=== PATIENT | female | born 1950 | race African-American/Black ===

== ENCOUNTER 2020-02-13 14:00 | Outpatient (CLI) | payer MEDICARE, SELFPAY ==
[2020-02-13 14:39] LABS: Basophils Percent Auto 0.5 % (0.2-1.2); Eosinophils Absolute Auto 0.1 K/mm3 (0-0.3); Eosinophils Percent Auto 1.3 % (0-4.4); Hematocrit 37.6 % (37.0-47.0); Hemoglobin 11.7 g/dL (12.0-15.0); Lymphocytes Absolute Auto 0.96 K/mm3 (0.9-3.2); Lymphocytes Percent Auto 24.2 % (18.3-44.2); Mean Corpuscular HGB Conc 31.1 g/dl (32-36); Mean Corpuscular Hemoglobin 29.3 pg (26-34); Mean Corpuscular Volume 94.2 fl (80-100); Mean Platelet Volume 10.6 fl (7.4-10.4); Monocytes Absolute Auto 0.5 K/mm3 (0.1-0.6); Monocytes Percent Auto 11.6 % (2.6-8.5); Neutrophils Absolute Auto 2.5 K/mm3 (1.3-6.7); Neutrophils Percent Auto 62.4 % (45.5-73.1); Platelet Count Result 223 k/mm3 (150-375); Red Blood Count 3.99 M/mm3 (4.2-5.4)
[2020-02-13 14:54] LABS: Alanine Aminotransferase 17 U/L (4-35); Albumin Level 4.1 g/dL (3.5-5.1); Alkaline Phosphatase 51 U/L (38-126); Aspartate Amino Transferase 36 U/L (14-36); Bilirubin,Total 0.2 mg/dL (0.2-1.3); Blood Urea Nitrogen 22 mg/dL (7-17); Carbon Dioxide 29 mmol/L (22-30); Chloride 103 mmol/L (98-107); Cholesterol 170 mg/dL (0-200); Estimated Glomerular Filt Rate > 60; Glucose 106 mg/dL (65-105); HDL Direct 62 mg/dL; Sodium 139 mmol/L (137-145); Triglycerides 58 mg/dL (<150)
[2020-02-13 15:05] LABS: LDL Cholesterol Direct 73 mg/dL
== END 2020-02-13 14:01 | disposition home or self-care (01) ==
PROVIDERS: PCP Internal Medicine; Visit Provider Nurse Practitioner
DX: E78.5 Hyperlipidemia, unspecified (principal); I10 Essential (primary) hypertension
CPT/HCPCS: 36415; 80053; 80061; 85025

== ENCOUNTER 2020-02-20 13:53 | Emergency (ER) | payer MEDICARE, SELFPAY ==
--- NOTE | 2020-02-20 13:56 | ED.GENADULT ---
HPI - General Adult General Chief complaint: Dental/Oral Stated complaint: jaw pain Time Seen by Provider: 02/20/20 14:13 Source: patient Mode of arrival: ambulatory Limitations: no limitations History of Present Illness HPI narrative: 69-year-old female patient presents to the [facility] with complaints of left jaw pain for the last 2 to 3 days. Denies any injury to the jaw that she is aware of. Denies any bad teeth. Patient denies any ear pain. Denies any sore throat, runny nose or fevers. Related Data Home Medications Medication Instructions Recorded Confirmed [id number] 600 unit 1,200 unit PO DAILY cap 09/29/19 capsule ascorbate calcium (vitamin C) 500 500 mg PO DAILY 09/29/19 mg tablet atorvastatin 10 mg tablet 10 mg PO DAILY 09/29/19 Allergies Allergy/AdvReac Type Severity Reaction Status Date / Time aspirin Allergy Unknown Headache Verified 10/13/19 12:07 caffeine Allergy Unknown Headache Verified 10/13/19 12:07 penicillin G Allergy Unknown headache Verified 10/13/19 12:07 Penicillins Allergy Unknown headache Verified 10/13/19 12:07 Sulfa (Sulfonamide Allergy Unknown headache Verified 10/13/19 12:07 Antibiotics) sulfanilamide Allergy Unknown Headache Verified 10/13/19 12:07 Review of Systems Review of Systems: Narrative: CONSTITUTIONAL: Denies fever, chills, or sweats. EYES: Denies visual changes, redness, or discharge. ENT: Denies rhinorrhea, congestion, sore throat, or otalgia. Positive left jaw pain x2 to 3 days CARDIOVASCULAR: Denies chest pain, palpitations, or edema. RESPIRATORY: Denies cough or dyspnea. GASTROINTESTINAL: Denies abdominal pain, nausea, vomiting, or diarrhea. GENITOURINARY: Denies dysuria or hematuria. SKIN: Denies rash or itching. MUSCULOSKELETAL: Denies back pain, joint pain, or myalgia. NEUROLOGIC: Denies headache, numbness, or weakness. PSYCHIATRIC: Denies anxiety or depression. [facility] Past Medical History Medical History Anal cancer Hypercholesterolemia Hyperparathyroidism Kidney stones Surgical History Surgical History H/O section x 2 H/O knee surgery bilateral H/O lithotripsy History of dilation and curettage Family History Family History Mother Family history of osteoporosis Family history of migraine headaches Family history of arthritis Family history of hearing loss Family history of congestive heart failure Patient's mother is , Onset Age: 99 Father Malignant neoplasm of prostate Patient's father is Grandparent Family history of malignant neoplasm of breast Social History Social History Smoking status: Never smoker Second hand tobacco smoke exposure: No Alcohol intake: current Gender identity (if verbalized by the patient): Female Comments At the time of my signature I agree with nursing past medical history, surgical, social, and family history. There is no relevant family history pertinent to the presenting complaint. Exam Narrative: Exam Narrative: GENERAL: Well-appearing, well-nourished, and in no acute distress. HEAD: Normocephalic, atraumatic. EYES: PERRLA and EOMI. ENT: Nares clear, no rhinorrhea or epistaxis. Mucous membranes moist. Patient has pain when opening the mouth. No obvious swelling noted. Pain does radiate up to the head causing a headache. Bilateral TMs are clear with no erythema or foreign bodies to the canal. Posterior pharynx with no erythema, tonsil larger, exudates or lesions present. NECK: Supple. No lymphadenopathy CHEST: Clear to auscultation. No respiratory distress. HEART: Regular rate and rhythm. No murmur heard. Normal peripheral pulses. ABDOMEN: Soft, nontender, nondistended, normal active bowel sounds. EXTREMITIES: No
[2020-02-20 14:10] VITALS: BP 131/47; PULSE 81; RESP 20; TEMP 36.1; O2SAT 99
== END 2020-02-20 14:19 | disposition home or self-care (01) ==
PROVIDERS: Emergency Provider Nurse Practitioner Family; PCP Internal Medicine
DX: M26.69 Other specified disorders of temporomandibular joint (principal); E78.00 Pure hypercholesterolemia, unspecified; E21.3 Hyperparathyroidism, unspecified; Z85.048 Personal history of other malignant neoplasm of rectum, rectosigmoid junction, and anus
CPT/HCPCS: 99211; G0463

== ENCOUNTER 2020-05-24 14:45 | Outpatient (CLI) | payer MEDICARE, SELFPAY ==
--- NOTE | ~2020-05-24 | MM_ITS ---
EXAMINATION: MM screening dulce maria BI w alayna HISTORY: Screening TECHNIQUE: Craniocaudal and mediolateral oblique 3-D tomosynthesis images were obtained and synthetic 2-D images were generated. CAD analysis was submitted and interpreted. COMPARISON: Comparison to multiple prior studies sequentially, with oldest reviewed study dated 06/12. BREAST PARENCHYMAL COMPOSITION: There are scattered areas of fibroglandular density. FINDINGS: There is no evidence of suspicious mass, calcification, or architectural distortion to sugg est malignancy in either breast. There has been no suspicious interval change. IMPRESSION: 1. No mammographic evidence of malignancy. 2. Recommend routine screening mammography in one year. BI-RADS Category 1: Negative Reviewed, dictated and finalized at location A.
--- NOTE | ~2020-05-24 | DEXA_ITS ---
Bone Density Report Name: Elieco Galvan Age: 69 Sex: Female Ethnicity: Date of : 1950 Indication: postmenopausal osteoporosis; parental hip fracture; cancer; Referring Provider: GATO CROOKS Study: Bone densitometry was performed. Exam Date: May 24, 2020 Accession number: [id number] Bone Density: Region BMD T-score Z-score Classification AP Spine (L1-L4) 0.818 -2.1 0.0 Osteopenia Femoral Neck (Left) 0.679 -1.5 0.2 Osteopenia Total Hip (Left) 0.782 -1.3 0.2 Osteopenia Total Hip Bilateral Avg 0.772 -1.4 0.1 Osteopenia Femoral Neck (Right) 0.620 -2.1 -0.3 Osteopenia Total Hip (Right) 0.760 -1.5 0.0 Osteopenia World Health Organization criteria for BMD impression classify patients as: Normal (T-score at or above -1.0), Osteopenia (T-score between -1.0 and -2.5), or Osteoporosis (T-score at or below -2.5). 10-year Fracture Risk(1): Major Osteoporotic Fracture 9.9% Hip Fracture 2.5% Reported Risk Factors: [place] (), Neck BMD=0.620, BMI=21.1, parental fracture (1) FRAX(R) Version 3.08. Fracture probability calculated for an untreated patient. Fracture probability may be lower if the patient has received treatment. Previous Exams: Region Exam Age BMD T-score BMD Change BMD Change Date g/cm2 vs Baseline vs Previous AP Spine(L1-L4) 05/24/2020 69 0.818 -2.1 -0.157(-16.1%) 0.055(7.2%)* 11/03/2016 66 0.763 -2.6 -0.212(-21.8%) -0.038(-4.8%)# 12/30/2011 61 0.801 -2.2 -0.174(-17.8%) -0.174(-17.8%) 02/02/2003 52 0.975 -0.7 Total Hip(Left) 05/24/2020 69 0.782 -1.3 -0.118(-13.2%) 0.017(2.3%) 11/03/2016 66 0.764 -1.5 -0.136(-15.1%) 0.016(2.1%)# 12/30/2011 61 0.749 -1.6 -0.152(-16.9%) -0.152(-16.9%) 02/02/2003 52 0.900 -0.3 Total Hip(Right) 05/24/2020 69 0.760 -1.5 -0.147(-16.2%) 0.002(0.3%) 11/03/2016 66 0.758 -1.5 -0.148(-16.4%) -0.044(-5.5%)# 12/30/2011 61 0.802 -1.1 -0.104(-11.5%) -0.104(-11.5%) 02/02/2003 52 0.907 -0.3 *Denotes significance at 95% confidence level, LSC for AP Spine = 0.022 g/cm2, LSC for Total Hip = 0.027 g/cm2 Clinical Information Provided by Patient: Parent has had a hip fracture Has used the following medications: Vitamin D Has the following medical conditions: Cancer Patient maximum height was 63 Menopause Age: 52 No regular weight bearing exercise Onset of menses at age 13 Number of children 2 Impression:
== END 2020-05-24 14:46 | disposition home or self-care (01) ==
LOC: ANHIMG 14:50
PROVIDERS: PCP Internal Medicine; Visit Provider Obstetrics & Gynecology
DX: Z12.31 Encounter for screening mammogram for malignant neoplasm of breast (principal); Z78.0 Asymptomatic menopausal state; M85.88 Other specified disorders of bone density and structure, other site; M85.852 Other specified disorders of bone density and structure, left thigh; M85.851 Other specified disorders of bone density and structure, right thigh
CPT/HCPCS: 77063; 77067; 77080

== ENCOUNTER 2020-05-24 15:58 | Outpatient (CLI) | payer MEDICARE, SELFPAY ==
[2020-05-24 16:14] LABS: Basophils Percent Auto 0.6 % (0.2-1.2); Eosinophils Absolute Auto 0.1 K/mm3 (0-0.3); Eosinophils Percent Auto 2.6 % (0-4.4); Hematocrit 40.7 % (37.0-47.0); Hemoglobin 12.6 g/dL (12.0-15.0); Immature Granulocyte Absolute 0.01 K/mm3 (0.00-0.031); Immature Granulocyte Percent A 0.2 % (0-0.5); Lymphocytes Percent Auto 25.6 % (18.3-44.2); Mean Corpuscular Volume 93.6 fl (80-100); Mean Platelet Volume 10.3 fl (7.4-10.4); Monocytes Absolute Auto 0.5 K/mm3 (0.1-0.6); Monocytes Percent Auto 9.6 % (2.6-8.5); Neutrophils Absolute Auto 2.9 K/mm3 (1.3-6.7); Neutrophils Percent Auto 61.4 % (45.5-73.1); Platelet Count Result 220 k/mm3 (150-375); Red Blood Count 4.35 M/mm3 (4.2-5.4); Red Cell Distribution Width 12.7 % (11.5-14.5); White Blood Count 4.7 K/mm3 (4.5-10.0)
[2020-05-24 17:38] LABS: Folic Acid 8.3 ng/mL (2.76->20)
== END 2020-05-24 15:59 | disposition home or self-care (01) ==
LOC: ANHLAB 16:01
PROVIDERS: PCP Internal Medicine; Visit Provider Nurse Practitioner
DX: D61.818 Other pancytopenia (principal)
CPT/HCPCS: 36415; 77063; 77067; 77080; 82607; 82746; 85025

== ENCOUNTER 2020-10-24 10:59 | Outpatient (CLI) | payer MEDICARE, SELFPAY ==
[2020-10-24 12:42] LABS: Vitamin D 25 Hydroxy 64.1 ng/mL
== END 2020-10-24 11:00 | disposition home or self-care (01) ==
PROVIDERS: PCP Internal Medicine; Visit Provider Obstetrics & Gynecology
DX: M85.80 Other specified disorders of bone density and structure, unspecified site (principal)
CPT/HCPCS: 36415; 82306

== ENCOUNTER 2021-02-13 13:45 | Emergency (ER) | payer MEDICARE, SELFPAY ==
[2021-02-13 13:56] VITALS: BP 133/54; PULSE 60; RESP 20; TEMP 36.3; O2SAT 100
--- NOTE | 2021-02-13 13:58 | ED.EXTPRO ---
HPI - Extremity Problem General Chief complaint: Extremity Injury, Upper Stated complaint: index finger Time Seen by Provider: 02/13/21 14:00 Source: patient and RN notes reviewed Mode of arrival: ambulatory Limitations: no limitations History of Present Illness HPI Narrative: 70-year-old female presents with concern injury to the second digit of her right hand. Reports she smashed the finger 3 weeks ago and caused injury to the fingernail. Reports the nail broke, and continues to get snagged and cause pain. She denies pain at rest. She denies musculoskeletal pain, bruising, swelling. Reports the nail is partially attached partially and partially detached. She denies any pockets of pus, redness Complaint: extremity pain Related Data Home Medications Medication Instructions Recorded Confirmed ascorbate calcium (vitamin C) 500 500 mg PO DAILY 09/29/19 10/22/20 mg tablet Allergies Allergy/AdvReac Type Severity Reaction Status Date / Time aspirin Allergy Mild Headache Verified 02/13/21 14:06 penicillin G Allergy Mild headache Verified 02/13/21 14:06 Penicillins Allergy Mild headache Verified 02/13/21 14:06 Sulfa (Sulfonamide Allergy Mild headache Verified 02/13/21 14:06 Antibiotics) sulfanilamide Allergy Mild Headache Verified 02/13/21 14:06 Review of Systems Review of Systems: Narrative: CONSTITUTIONAL: Denies malaise, chills, sweats, or fever. SKIN: Reports injury to the fingernail of the second digit right hand MUSCULOSKELETAL: Denies musculoskeletal pain, bruising, swelling NEUROLOGIC: Denies numbness, weakness All systems reviewed & are unremarkable except as noted in HPI and below PMFSH Past Medical History Medical History Anal cancer Hypercholesterolemia Hyperparathyroidism Hypertension Kidney stones Surgical History Surgical History H/O section x 2 H/O knee surgery bilateral H/O lithotripsy History of dilation and curettage Family History Family History Mother Family history of osteoporosis Family history of migraine headaches Family history of arthritis Family history of hearing loss Family history of congestive heart failure Patient's mother is , Onset Age: 99 Father Malignant neoplasm of prostate Patient's father is Grandparent Family history of malignant neoplasm of breast Social History Social History Smoking status: Never smoker Second hand tobacco smoke exposure: No Alcohol intake: current Alcohol use details: occasionally Gender identity (if verbalized by the patient): Female Comments At time of signature, agree with nursing past medical, surgical, social and family history. There is no relevant family history pertinent to the presenting complaint Exam Narrative: Exam Narrative: GENERAL: Well-appearing, well-nourished, and in no acute distress. HEAD: Normocephalic EYES: PERRLA, conjunctivae clear NECK: Supple. CHEST: Speaks in full sentences. No respiratory distress. HEART: Regular rate and rhythm. Normal and equal peripheral pulses. EXTREMITIES: Second digit of right hand has normal strength and sensation. 5/5 strength with digit flexion, extension. Range of motion normal. No clubbing, cyanosis, or edema noted. No tenderness. Skin intact. Normal digital cascade with flexion of fingers, median, ulnar and radial nerve intact. Normal sensation of each side of finger. Can perform 'okay' sign, 'cross over finger test of index and middle fingers' and 'thumbs up' sign. No scissoring. Normal thumb opposition. Good capillary refill and radial pulse. Distal capillary refill less than 3 seconds. SKIN: Warn, dry, intact, pink. No rash. Fingernail on the second digit of the right hand partially detached, g
== END 2021-02-13 14:27 | disposition home or self-care (01) ==
PROVIDERS: Emergency Provider Nurse Practitioner; PCP Internal Medicine
DX: S69.91XA Unspecified injury of right wrist, hand and finger(s), initial encounter (principal); X58.XXXA Exposure to other specified factors, initial encounter; E78.00 Pure hypercholesterolemia, unspecified; I10 Essential (primary) hypertension; Z85.048 Personal history of other malignant neoplasm of rectum, rectosigmoid junction, and anus
CPT/HCPCS: 99212; G0463

== ENCOUNTER 2021-03-26 11:19 | Emergency (ER) | payer MEDICARE, SELFPAY ==
[2021-03-26 11:34] VITALS: BP 113/56; PULSE 80; RESP 16; TEMP 36.9; O2SAT 100
[2021-03-26 11:36] VITALS: BP 113/56; PULSE 80; RESP 16; TEMP 36.9; O2SAT 100
--- NOTE | 2021-03-26 12:03 | ED.GENADULT ---
HPI - General Adult General Chief complaint: Urogenital-Female Stated complaint: uti Time Seen by Provider: 03/26/21 11:23 Source: patient Mode of arrival: ambulatory Limitations: no limitations History of Present Illness HPI narrative: Patient is a 70-year-old -[place] female presents to the [facility] via pov for evaluation of nausea that began Thursday after starting Macrobid. Additionally, she reports having a colonoscopy on March 21 and urinary symptoms such as urinary frequency, urgency, chills, and fever rich began on March 23. She contacted her son who is a MD who prescribed her 5 days of Macrobid. She reports the Macrobid has improved urinary symptoms although continues to cause nausea stating, it just makes me stick in my stomach .. She states her fever resolved Thursday. History of UTIs. UTI symptoms are similar to previous UTIs. Last UTI was approximately 1 year ago. She is also requesting urine culture to check for Macrobid resistance as encouraged by her son. Related Data Home Medications Medication Instructions Recorded Confirmed ascorbate calcium (vitamin C) 500 500 mg PO DAILY 09/29/19 03/26/21 mg tablet Allergies Allergy/AdvReac Type Severity Reaction Status Date / Time aspirin Allergy Mild Headache Verified 03/26/21 12:03 penicillin G Allergy Mild headache Verified 03/26/21 12:03 Penicillins Allergy Mild headache Verified 03/26/21 12:03 Sulfa (Sulfonamide Allergy Mild headache Verified 03/26/21 12:03 Antibiotics) sulfanilamide Allergy Mild Headache Verified 03/26/21 12:03 Review of Systems Review of Systems: Denies history of kidney disease pyelonephritis, and renal calculi. Denies sweats, change in appetite, poor p.o. intake, malaise, recent weight loss, myalgias, lymphadenopathy, headache, dizziness, abdominal pain, constipation, vomiting, diarrhea, abdominal cramping, dysuria, hematuria, back pain, urinary incontinence, vaginal bleeding/discharge, shortness of breath, chest pain, and heart palpitations/murmurs. [facility] Past Medical History Medical History Anal cancer Hypercholesterolemia Hyperparathyroidism Hypertension Kidney stones Surgical History Surgical History H/O section x 2 H/O knee surgery bilateral H/O lithotripsy History of dilation and curettage Family History Family History Mother Family history of osteoporosis Family history of migraine headaches Family history of arthritis Family history of hearing loss Family history of congestive heart failure Patient's mother is , Onset Age: 99 Father Malignant neoplasm of prostate Patient's father is Grandparent Family history of malignant neoplasm of breast Social History Social History Smoking status: Never smoker Second hand tobacco smoke exposure: No Alcohol intake: current Alcohol use details: occasionally Gender identity (if verbalized by the patient): Female Comments I have reviewed and agree with the patient's past medical, surgical, social, and family hx as documented by the RN. There is no relevant family history pertinent to the presenting complaint. Exam Narrative: GENERAL: Well-appearing, well-nourished, and in no acute distress. HEAD: Normocephalic, atraumatic. NECK: Supple. No lymphadenopathy or nuchal rigidity. CHEST: Lung sounds are clear to auscultation in bilateral lung thompson. No respiratory distress. HEART: Regular rate and rhythm. No murmur, gallop, or rub heard. ABDOMEN: Soft, non-tender, non-distended, normal active bowel sounds in all quadrants. No guarding. No rebound tenderness. No pulsatile or palpable abdominal mass(es). No CVATGU: Bladder non-distended, non-tender EXTR
== END 2021-03-26 12:20 | disposition home or self-care (01) ==
PROVIDERS: Emergency Provider Nurse Practitioner Family; PCP Nurse Practitioner
DX: N30.01 Acute cystitis with hematuria (principal); E78.00 Pure hypercholesterolemia, unspecified; I10 Essential (primary) hypertension; E21.3 Hyperparathyroidism, unspecified; Z85.048 Personal history of other malignant neoplasm of rectum, rectosigmoid junction, and anus
CPT/HCPCS: 81003; 87086; 87088; 99213; G0463

== ENCOUNTER 2021-03-29 10:30 | Emergency (ER) | payer MEDICARE, SELFPAY ==
--- NOTE | ~2021-03-29 | CT_ITS ---
EXAMINATION: CT abdomen pelvis wo con DATE: 03/29/2021 12:24 INDICATION: Left flank pain. TECHNIQUE: Computed tomography (CT) of the abdomen and pelvis was performed without intravenous contr ast. Automated exposure control and iterative reconstruction technique were employed. The dose-length product was 183.91 mGy-cm. COMPARISON: CT abdomen and pelvis 04/18/2016 FINDINGS: The visualized portions of the lung bases demonstrate mild atelectasis. No pleural effusion . Cardiomegaly is noted. No pericardial effusion. There is a 15 mm mass in inferior left breast, stab le from 04/19/2016, likely benign. The liver, gallbladder, spleen, pancreas, adrenal glands are normal . There are three 1-2 mm stones in right kidney. There are 3 stones in left kidney measuring up to 4 mm. There is severe left hydronephrosis and hydroureter. Two calcifications in the area of distal lef t ureter were present on the prior CT, likely phleboliths. There are no dilated loops of bowel. The a ppendix is normal. There is diverticulosis of the colon without evidence of diverticulitis. There are no pathologically enlarged lymph nodes. There is no free intraperitoneal fluid. There is mild lumbar spondylosis. IMPRESSION: 1. Severe left hydronephrosis and hydroureter. Stricture from pelvic radiation is a possible etiology . 2. Bilateral nonobstructing kidney stones. Reviewed, dictated and finalized at location B. IMPRESSION: 1. Severe left hydronephrosis and hydroureter. Stricture from pelvic radiation is a possible etiology. 2. Bilateral nonobstructing kidney stones.
[2021-03-29 11:22] VITALS: BP 126/56; PULSE 76; RESP 18; TEMP 36.4; O2SAT 100
[2021-03-29 11:32] LABS: Basophils Percent Auto 0.4 % (0.2-1.2); Eosinophils Percent Auto 0.4 % (0-4.4); Hematocrit 35.1 % (37.0-47.0); Hemoglobin 10.8 g/dL (12.0-15.0); Immature Granulocyte Absolute 0.05 K/mm3 (0.00-0.031); Immature Granulocyte Percent A 0.6 % (0-0.5); Lymphocytes Absolute Auto 0.71 K/mm3 (0.9-3.2); Lymphocytes Percent Auto 8.9 % (18.3-44.2); Mean Corpuscular HGB Conc 30.8 g/dl (32-36); Mean Corpuscular Hemoglobin 28.6 pg (26-34); Mean Corpuscular Volume 92.9 fl (80-100); Monocytes Absolute Auto 0.7 K/mm3 (0.1-0.6); Monocytes Percent Auto 8.3 % (2.6-8.5); Neutrophils Absolute Auto 6.5 K/mm3 (1.3-6.7); Neutrophils Percent Auto 81.4 % (45.5-73.1); Platelet Count Result 275 k/mm3 (150-375); Red Blood Count 3.78 M/mm3 (4.2-5.4); Red Cell Distribution Width 12.6 % (11.5-14.5)
[2021-03-29 11:46] LABS: Anion Gap 8 mmol/L (8-16); Blood Urea Nitrogen 16 mg/dL (7-17); Calcium 9.2 mg/dL (8.4-10.2); Carbon Dioxide 30 mmol/L (22-30); Chloride 102 mmol/L (98-107); Estimated CRCL calculation 45 ml/min; Estimated Glomerular Filt Rate > 60; Glucose 115 mg/dL (65-110); Potassium 3.6 mmol/L (3.4-5.0); Sodium 140 mmol/L (137-145)
--- NOTE | 2021-03-29 12:04 | ED.BACK ---
HPI - Back Pain/Injury General Chief Complaint: Back Pain/Injury Stated Complaint: flank pain Time Seen by Provider: 03/29/21 12:02 Source: patient Mode of arrival: ambulatory Limitations: no limitations History of Present Illness HPI Narrative: Patient is a 70-year-old female who presents for evaluation of left flank pain in the setting of a urinary tract infection. Patient was initially started on Macrobid by her son who is a physician last week. She had mild improvement in her symptoms without antibiotic. However, patient was seen at her primary care physician's office this morning for dysuria and was diagnosed with recurrent urinary tract infection. Given patient's history of nephrolithiasis, she was urged to come to the emergency department for evaluation. Patient reports dull, aching left kidney stone with subjective fever and chills. Patient was afebrile at the time of arrival to our facility. No palpitations or shortness of breath. No vaginal discharge or bleeding. No vomiting. Related Data Home Medications Medication Instructions Recorded Confirmed ascorbate calcium (vitamin C) 500 500 mg PO DAILY 09/29/19 03/29/21 mg tablet Allergies Allergy/AdvReac Type Severity Reaction Status Date / Time aspirin Allergy Mild Headache Verified 03/29/21 12:03 penicillin G Allergy Mild headache Verified 03/29/21 12:03 Penicillins Allergy Mild headache Verified 03/29/21 12:03 Sulfa (Sulfonamide Allergy Mild headache Verified 03/29/21 12:03 Antibiotics) sulfanilamide Allergy Mild Headache Verified 03/29/21 12:03 Review of Systems Review of Systems: CONSTITUTIONAL: Reports fever and chills EYES: Denies visual changes, redness, or discharge. ENT: Denies rhinorrhea, congestion, sore throat, or otalgia. CARDIOVASCULAR: Denies chest pain, palpitations, or edema. RESPIRATORY: Denies cough or dyspnea. GASTROINTESTINAL: Denies abdominal pain, reports mild nausea GENITOURINARY: Reports dysuria, hematuria and flank pain SKIN: Denies rash or itching. MUSCULOSKELETAL: Denies back pain, joint pain, or myalgia. NEUROLOGIC: Denies headache, numbness, or w PMFSH Past Medical History Medical History Anal cancer Hypercholesterolemia Hyperparathyroidism Hypertension Kidney stones Vulvar adhesions Surgical History Surgical History H/O section x 2 H/O knee surgery bilateral H/O lithotripsy History of dilation and curettage Family History Family History Mother Family history of osteoporosis Family history of migraine headaches Family history of arthritis Family history of hearing loss Family history of congestive heart failure Patient's mother is , Onset Age: 99 Father Malignant neoplasm of prostate Patient's father is Grandparent Family history of malignant neoplasm of breast Social History Social History Smoking status: Never smoker Second hand tobacco smoke exposure: No Alcohol intake: current Alcohol use details: occasionally Gender identity (if verbalized by the patient): Female Exam Narrative: GENERAL: Awake, alert, conversant HEAD: Normocephalic, atraumatic. EYES: PERRLA and EOMI. ENT: Nares clear, no rhinorrhea or epistaxis. Mucous membranes moist. NECK: Supple. CHEST: No respiratory distress, breathing even and non labored HEART: Regular rate, sinus rhythm ABDOMEN:Non distended, non tender, mild left flank tenderness EXTREMITIES: Normal range of motion. No edema. SKIN: Warm, dry, no rash. NEURO:No focal deficits. Alert and oriented x3 Course Vital Signs Vital signs: Vital Signs Temperature 36.4 C L 03/29/21 11:22 Pulse Rate 76 03/29/21 11:22 Respiratory Rate 18 03/29/21 11:22 Blood Pressure 126/56 L 03/29
[2021-03-29 12:09] VITALS: BP 113/50; PULSE 66; RESP 20; O2SAT 99
[2021-03-29 12:09] LABS: Add Urine Microscopic? YES; Appearance Urine Turbid (Clear); Bilirubin Urine Negative (Negative); Blood Urine 2+ (Negative); Color Urine Yellow (Yellow); Glucose Urine UA Negative (Negative); Ketones Urine Negative (Negative); Leukocyte Esterase Ur 3+ LEU/UL (Negative); Nitrate Urine Negative (Negative); Protein Urine 3+ mg/dL (Negative); Specific Grav Ur 1.014 (1.001-1.035); Urobilinogen Urine Negative mg/dL (<2.0); WBC Urine >75 /hpf
[2021-03-29 12:41] VITALS: BP 120/53; PULSE 77; RESP 20; O2SAT 99
[2021-03-29] MEDS: SODIUM CHLORIDE 0.9% IV 1,000 ML 999 ML IV CONT (12:49)
[2021-03-29 13:30] VITALS: BP 119/59; PULSE 68; RESP 20; O2SAT 95
[2021-03-29 14:55] VITALS: BP 120/80; PULSE 60; RESP 20; O2SAT 96
== END 2021-03-29 14:57 | disposition home or self-care (01) ==
PROVIDERS: Emergency Medicine; Emergency Provider Emergency Medicine; PCP Nurse Practitioner
DX: N10 Acute pyelonephritis (principal); E78.00 Pure hypercholesterolemia, unspecified; E21.3 Hyperparathyroidism, unspecified; I10 Essential (primary) hypertension; Z87.442 Personal history of urinary calculi; Z88.0 Allergy status to penicillin; Z88.2 Allergy status to sulfonamides; Z85.048 Personal history of other malignant neoplasm of rectum, rectosigmoid junction, and anus
CPT/HCPCS: 36415; 74176; 80048; 81001; 85025; 87086; 96365; 96367; 99284; J0131; J0696; J7030

== ENCOUNTER 2021-04-24 12:25 | Outpatient (CLI) | payer MEDICARE, SELFPAY ==
--- NOTE | ~2021-04-24 | US_ITS ---
US retroperitoneal comp 04/24/2021 12:57 Procedure: Realtime transabdominal ultrasound of the kidneys and bladder. Indication: Renal infection Comparison: Ultrasound dated 01/07/[address] dated 03/29/2021 Findings: There is moderate left hydronephrosis. Right renal echotexture is normal without stones, ma ss or hydronephrosis. The right kidney measures 8.9 cm and left kidney measures 8.4 cm. Bladder with in normal limits. Impression: 1: Moderate left hydronephrosis. Reviewed, dictated and finalized at location A. Impression: 1: Moderate left hydronephrosis.
[2021-04-24 16:04] LABS: Hematocrit 34.8 % (37.0-47.0); Hemoglobin 10.5 g/dL (12.0-15.0); Mean Corpuscular HGB Conc 30.2 g/dl (32-36); Mean Corpuscular Hemoglobin 27.9 pg (26-34); Mean Corpuscular Volume 92.6 fl (80-100); Mean Platelet Volume 10.8 fl (7.4-10.4); Platelet Count Result 211 k/mm3 (150-375); Red Blood Count 3.76 M/mm3 (4.2-5.4); Red Cell Distribution Width 13.6 % (11.5-14.5)
== END 2021-04-24 12:26 | disposition home or self-care (01) ==
PROVIDERS: PCP Internal Medicine; Visit Provider Nurse Practitioner
DX: N15.9 Renal tubulo-interstitial disease, unspecified (principal)
CPT/HCPCS: 36415; 76770; 85027

== ENCOUNTER → 2021-06-29 00:28 | Outpatient (CLI) | payer MEDICARE, SELFPAY ==
[2021-06-29 18:14] LABS: SARS-CoV-2 RNA PCR Positive
== END ==
PROVIDERS: PCP Internal Medicine; Visit Provider Clinical Nurse Specialist
DX: U07.1 COVID-19 (principal)
CPT/HCPCS: C9803; U0003; U0005

== ENCOUNTER 2021-08-22 14:04 | Outpatient (CLI) | payer MEDICARE, SELFPAY ==
[2021-08-22 15:20] LABS: Basophils Percent Auto 0.5 % (0.2-1.2); Eosinophils Absolute Auto 0.1 K/mm3 (0-0.3); Eosinophils Percent Auto 1.4 % (0-4.4); Hematocrit 37.6 % (37.0-47.0); Hemoglobin 12.1 g/dL (12.0-15.0); Immature Granulocyte Absolute 0.01 K/mm3 (0.00-0.031); Immature Granulocyte Percent A 0.2 % (0-0.5); Lymphocytes Percent Auto 23.4 % (18.3-44.2); Mean Corpuscular HGB Conc 32.2 g/dl (32-36); Mean Corpuscular Hemoglobin 29.2 pg (26-34); Mean Corpuscular Volume 90.8 fl (80-100); Mean Platelet Volume 10.3 fl (7.4-10.4); Monocytes Absolute Auto 0.6 K/mm3 (0.1-0.6); Neutrophils Absolute Auto 2.6 K/mm3 (1.3-6.7); Neutrophils Percent Auto 60.5 % (45.5-73.1); Platelet Count Result 245 k/mm3 (150-375); Red Blood Count 4.14 M/mm3 (4.2-5.4); Red Cell Distribution Width 13.5 % (11.5-14.5); White Blood Count 4.3 K/mm3 (4.5-10.0)
[2021-08-22 15:30] LABS: Alanine Aminotransferase 22 U/L (4-35); Albumin Level 4.5 g/dL (3.5-5.1); Alkaline Phosphatase 58 U/L (38-126); Anion Gap 9 mmol/L (8-16); Aspartate Amino Transferase 37 U/L (14-36); Bilirubin,Total 0.4 mg/dL (0.2-1.3); Blood Urea Nitrogen 27 mg/dL (7-17); Calcium 9.6 mg/dL (8.4-10.2); Carbon Dioxide 28 mmol/L (22-30); Chloride 100 mmol/L (98-107); Cholesterol 199 mg/dL (0-200); Estimated Glomerular Filt Rate > 60; Glucose 103 mg/dL (65-110); HDL Direct 80 mg/dL; Potassium 4.1 mmol/L (3.4-5.0); Sodium 137 mmol/L (137-145); Triglycerides 49 mg/dL (<150)
[2021-08-22 15:41] LABS: LDL Cholesterol Direct 86 mg/dL
[2021-08-22 16:19] LABS: Vitamin D 25 Hydroxy 64.6 ng/mL
[2021-08-22 16:59] LABS: Hepatitis B Surface Anti Res Positive
[2021-08-28 16:00] LABS: Mumps Virus IgG Antibody >300.00 AU/mL
[2021-08-28 20:12] LABS: Rubeola Measles IgG >300.00 AU/mL
== END 2021-08-22 14:05 | disposition home or self-care (01) ==
PROVIDERS: PCP Internal Medicine; Visit Provider Nurse Practitioner
DX: Z11.59 Encounter for screening for other viral diseases (principal); Z71.85 Encounter for immunization safety counseling; E55.9 Vitamin D deficiency, unspecified; E78.00 Pure hypercholesterolemia, unspecified; I10 Essential (primary) hypertension; E21.3 Hyperparathyroidism, unspecified
CPT/HCPCS: 36415; 80053; 80061; 82306; 85025; 86706; 86735; 86765; 86787

== ENCOUNTER 2021-10-07 14:11 | Outpatient (CLI) | payer MEDICARE, SELFPAY ==
--- NOTE | ~2021-10-07 | XR_ITS ---
XR hip RT min 2V DATE: 10/07/2021 14:04 INDICATION: Right hip pain TECHNIQUE: AP and lateral views COMPARISON: None FINDINGS: No fracture or dislocation, avascular necrosis or bone destruction. There is chondrocalcino sis of the right hip joint. The pubic symphysis and right sacroiliac joints are intact. IMPRESSION: Right hip chondrocalcinosis Reviewed, dictated and finalized at location A. FORM MILL SUPERVISOR IMPRESSION: Right hip chondrocalcinosis
--- NOTE | ~2021-10-07 | XR_ITS ---
EXAMINATION: XR chest 2V 10/07/2021 14:04 INDICATION: Screening for tuberculosis. PROCEDURE: 2 view chest COMPARISON: 08/15/2009 FINDINGS: The lungs are clear. The cardiomediastinal silhouette is within normal limits. There are no pleural effusions. There is no pneumothorax suspected. IMPRESSION: 1: NO ACUTE CARDIOPULMONARY DISEASE. Reviewed, dictated and finalized at location A. PMENT STERILIZER
[2021-10-15 19:21] LABS: Parathyroid Hormone Related Pr 10 pg/mL (11-20)
== END 2021-10-07 14:12 | disposition home or self-care (01) ==
PROVIDERS: PCP Internal Medicine; Visit Provider Clinical Nurse Specialist
DX: M25.551 Pain in right hip (principal); Z11.1 Encounter for screening for respiratory tuberculosis; E21.3 Hyperparathyroidism, unspecified
CPT/HCPCS: 36415; 71046; 73502; 83519

== ENCOUNTER 2021-11-19 10:23 | Outpatient (CLI) | payer MEDICARE, SELFPAY ==
--- NOTE | ~2021-11-19 | MM_ITS ---
EXAMINATION: MM screening dulce maria BI w alayna HISTORY: Screening mammogram TECHNIQUE: Craniocaudal and mediolateral oblique 3-D tomosynthesis images were obtained and synthetic 2-D images were generated. CAD analysis was submitted and interpreted. COMPARISON: 05/24/2020, 08/05/2018, 07/22/2017 bilateral screening mammogram examinations BREAST PARENCHYMAL COMPOSITION: There are scattered areas of fibroglandular density. FINDINGS: There is no evidence of suspicious mass, calcification, or architectural distortion to sugg est malignancy in either breast. There has been no suspicious interval change. IMPRESSION: 1. No mammographic evidence of malignancy. 2. Recommend routine screening mammography in one year. BI-RADS Category 1: Negative Reviewed, dictated and finalized at location A.
== END 2021-11-19 10:24 | disposition home or self-care (01) ==
LOC: ANHIMG 10:25
PROVIDERS: PCP Internal Medicine; Visit Provider Obstetrics & Gynecology
DX: Z12.31 Encounter for screening mammogram for malignant neoplasm of breast (principal)
CPT/HCPCS: 77063; 77067

== ENCOUNTER 2022-07-01 10:28 | Outpatient (CLI) | payer MEDICARE, SELFPAY ==
--- NOTE | ~2022-07-01 | CT_ITS ---
EXAMINATION: CT abdomen pelvis w con DATE: 07/01/2022 11:10 INDICATION: Anal cancer. TECHNIQUE: Computed tomography (CT) of the abdomen and pelvis was performed with 100 mL Omnipaque 350 intravenous contrast. Automated exposure control and iterative reconstruction technique were employe d. The dose-length product was 183.57 mGy-cm. COMPARISON: CT abdomen and pelvis 03/29/2021 FINDINGS: The visualized portions of the lung bases demonstrate mild atelectasis. No pleural effusion . The heart size is normal. No pericardial effusion. There are cysts in the liver measuring up to 4 m m. The gallbladder, spleen, pancreas, adrenal glands, and right kidney are normal. There is mild atro phy of left kidney. There are 3 stones in left kidney measuring up to 3 mm. There is mild left hydron ephrosis. There is diverticulosis of the colon without evidence of diverticulitis. There are no dilat ed loops of bowel. The appendix is normal. There are no pathologically enlarged lymph nodes. There is no free intraperitoneal fluid. There is mild lumbar spondylosis. IMPRESSION: 1. No evidence of metastatic disease. 2. Mild left hydronephrosis with interval improvement. Reviewed, dictated and finalized at location A. ING DRAGLINE OPERATOR
[2022-07-01 11:06] LABS: Estimated Glomerular Filt Rate > 60
[2022-07-05 10:47] LABS: Endomysial Ab (IgA) Screen Negative (Negative)
== END 2022-07-01 10:29 | disposition home or self-care (01) ==
PROVIDERS: PCP Internal Medicine
DX: C21.0 Malignant neoplasm of anus, unspecified (principal)
CPT/HCPCS: 74177; 82378; 86255; Q9967

== ENCOUNTER 2022-11-24 12:41 | Outpatient (CLI) | payer MEDICARE, SELFPAY ==
--- NOTE | ~2022-11-24 | XR_ITS ---
Clinical Indication: TB screening PA and lateral views of the chest: Comparison: 10/07/2021 Findings: The lungs are clear, without evidence of focal consolidation or pleural effusion. Cardiome diastinal silhouette is within normal limits. Bones and soft tissues are unremarkable. Impression: Clear lungs. Reviewed, dictated and finalized at location . Impression: Clear lungs.
[2022-11-24 13:04] LABS: Basophils Percent Auto 0.9 % (0.2-1.2); Eosinophils Absolute Auto 0.1 K/mm3 (0-0.3); Eosinophils Percent Auto 2.4 % (0-4.4); Hematocrit 39.9 % (37.0-47.0); Hemoglobin 12.2 g/dL (12.0-15.0); Immature Granulocyte Absolute 0.01 K/mm3 (0.00-0.031); Immature Granulocyte Percent A 0.2 % (0-0.5); Lymphocytes Absolute Auto 1.03 K/mm3 (0.9-3.2); Lymphocytes Percent Auto 22.9 % (18.3-44.2); Mean Corpuscular HGB Conc 30.6 g/dl (32-36); Mean Corpuscular Hemoglobin 28.8 pg (26-34); Mean Corpuscular Volume 94.3 fl (80-100); Mean Platelet Volume 9.9 fl (7.4-10.4); Monocytes Absolute Auto 0.6 K/mm3 (0.1-0.6); Monocytes Percent Auto 13.3 % (2.6-8.5); Neutrophils Absolute Auto 2.7 K/mm3 (1.3-6.7); Neutrophils Percent Auto 60.3 % (45.5-73.1); Platelet Count Result 246 k/mm3 (150-375); Red Blood Count 4.23 M/mm3 (4.2-5.4); Red Cell Distribution Width 13.2 % (11.5-14.5); White Blood Count 4.5 K/mm3 (4.5-10.0)
[2022-11-24 13:15] LABS: Alanine Aminotransferase 18 U/L (6-35); Albumin Level 4.4 g/dL (3.5-5.1); Alkaline Phosphatase 58 U/L (38-126); Anion Gap 3 mmol/L (8-16); Aspartate Amino Transferase 37 U/L (14-36); Bilirubin,Total 0.6 mg/dL (0.2-1.3); Blood Urea Nitrogen 14 mg/dL (7-17); Carbon Dioxide 33 mmol/L (22-30); Chloride 103 mmol/L (98-107); Cholesterol 198 mg/dL (0-200); Estimated Glomerular Filt Rate > 60; Glucose 92 mg/dL (65-110); HDL Direct 93 mg/dL; Potassium 3.9 mmol/L (3.4-5.0); Sodium 139 mmol/L (137-145); Triglycerides 60 mg/dL (<150)
[2022-11-24 13:27] LABS: LDL Cholesterol Direct 74 mg/dL
[2022-11-24 14:10] LABS: Vitamin D 25 Hydroxy 72.6 ng/mL
== END 2022-11-24 12:42 | disposition home or self-care (01) ==
PROVIDERS: PCP Internal Medicine; Visit Provider Clinical Nurse Specialist
DX: E78.00 Pure hypercholesterolemia, unspecified (principal); I10 Essential (primary) hypertension; E55.9 Vitamin D deficiency, unspecified; C21.0 Malignant neoplasm of anus, unspecified; Z11.1 Encounter for screening for respiratory tuberculosis; D61.818 Other pancytopenia
CPT/HCPCS: 36415; 71046; 80053; 80061; 82306; 84443; 85025

== ENCOUNTER 2023-01-22 14:51 | Outpatient (CLI) | payer MEDICARE, SELFPAY ==
--- NOTE | ~2023-01-22 | MM_ITS ---
EXAMINATION: MM screening [facility] BI w alayna HISTORY: Screening mammogram TECHNIQUE: Craniocaudal and mediolateral oblique 3-D tomosynthesis images were obtained and synthetic 2-D images were generated. CAD analysis was submitted and interpreted. COMPARISON: 11/19/2021, 05/24/2020, 08/05/2018 bilateral screening mammogram examinations BREAST PARENCHYMAL COMPOSITION: There are scattered areas of fibroglandular density. FINDINGS: There is no evidence of suspicious mass, calcification, or architectural distortion to sugg est malignancy in either breast. There has been no suspicious interval change. IMPRESSION: 1. No mammographic evidence of malignancy. 2. Recommend routine screening mammography in one year. BI-RADS Category 1: Negative Reviewed, dictated and finalized at location A.
--- NOTE | ~2023-01-22 | DEXA_ITS ---
Bone Density Report Name: ELIS NOEL Age: 72 Sex: Female Ethnicity: White Date of : 1950 Indication: osteopenia; parental hip fracture; cancer; postmenopausal Referring Provider: HELLEN ROONEY Study: Bone densitometry was performed. Exam Date: January 22, 2023 Accession number: [id number] Bone Density: Region BMD T-score Z-score Classification AP Spine(L1-L4) 0.836 -1.9 0.3 Osteopenia Femoral Neck (Left) 0.650 -1.8 0.1 Osteopenia Total Hip (Left) 0.770 -1.4 0.2 Osteopenia Femoral Neck (Right) 0.595 -2.3 -0.4 Osteopenia Total Hip (Right) 0.735 -1.7 -0.1 Osteopenia Total Hip Mean 0.753 -1.6 0.1 Osteopenia World Health Organization criteria for BMD impression classify patients as: Normal (T-score at or above -1.0), Osteopenia (T-score between -1.0 and -2.5), or Osteoporosis (T-score at or below -2.5). 10-year Fracture Risk(1): Major Osteoporotic Fracture 20% Hip Fracture 9.0% Reported Risk Factors: [place] (), Neck BMD=0.595, BMI=19.1, parental fracture (1) FRAX(R) Version 3.08. Fracture probability calculated for an untreated patient. Fracture probability may be lower if the patient has received treatment. Previous Exams: Region Exam Age BMD T-score BMD Change BMD Change Date g/cm2 vs Baseline vs Previous AP Spine (L1-L4) 01/22/2023 72 0.836 -1.9 0.034 (4.3%)# 0.018 (2.2%) 05/24/2020 69 0.818 -2.1 0.017 (2.1%)# 0.055 (7.2%)* 11/03/2016 66 0.763 -2.6 -0.038 (-4.8%) -0.038 (-4.8%) 12/30/2011 61 0.801 -2.2 Total Hip(Left) 01/22/2023 72 0.770 -1.4 0.022 (2.9%)# -0.012 (-1.5%) 05/24/2020 69 0.782 -1.3 0.033 (4.4%)# 0.017 (2.3%) 11/03/2016 66 0.764 -1.5 0.016 (2.1%)# 0.016 (2.1%)# 12/30/2011 61 0.749 -1.6 Total Hip(Right) 01/22/2023 72 0.735 -1.7 -0.067 (-8.3%) -0.025 (-3.2%) 05/24/2020 69 0.760 -1.5 -0.042 (-5.3%) 0.002 (0.3%) 11/03/2016 66 0.758 -1.5 -0.044 (-5.5%) -0.044 (-5.5%) 12/30/2011 61 0.802 -1.1 *Denotes significance at 95% confidence level, LSC for AP Spine = 0.022 g/cm2, LSC for Total Hip = 0.027 g/cm2 # Denotes dissimilar scan types or analysis methods Clinical Information Provided by Patient: Parent has had a hip fracture Has used the following medications: Vitamin D Has the following medical conditions: Cancer Patient maximum height was 63 No regular weight bearing exercise Onset of menses at age 13 Number of children 2
== END 2023-01-22 14:52 | disposition home or self-care (01) ==
LOC: ANHIMG 14:52
PROVIDERS: PCP Internal Medicine; Visit Provider Clinical Nurse Specialist
DX: Z12.31 Encounter for screening mammogram for malignant neoplasm of breast (principal); Z78.0 Asymptomatic menopausal state; M85.88 Other specified disorders of bone density and structure, other site; M85.852 Other specified disorders of bone density and structure, left thigh; M85.851 Other specified disorders of bone density and structure, right thigh
CPT/HCPCS: 77063; 77067; 77080

== ENCOUNTER 2023-02-06 13:20 | Outpatient (CLI) | payer MEDICARE, SELFPAY ==
[2023-02-06 15:01] LABS: HAV RESULT Negative (Negative)
[2023-02-10 12:28] LABS: Hepatitis A Antibody Total Reactive (Nonreactive)
== END 2023-02-06 13:21 | disposition home or self-care (01) ==
PROVIDERS: PCP Internal Medicine; Visit Provider Clinical Nurse Specialist
DX: Z13.0 Encounter for screening for diseases of the blood and blood-forming organs and certain disorders involving the immune mechanism (principal); Z13.29 Encounter for screening for other suspected endocrine disorder; Z13.228 Encounter for screening for other metabolic disorders
CPT/HCPCS: 36415; 86708; 86709

== ENCOUNTER 2023-12-15 12:09 | Outpatient (CLI) | payer MEDICARE, SELFPAY ==
[2023-12-15 13:13] LABS: Basophils Absolute Auto 0.1 K/mm3 (0.0-0.1); Basophils Percent Auto 1.3 % (0.2-1.2); Eosinophils Absolute Auto 0.1 K/mm3 (0-0.3); Eosinophils Percent Auto 1.5 % (0-4.4); Hematocrit 37.6 % (37.0-47.0); Hemoglobin 11.8 g/dL (12.0-15.0); Immature Granulocyte Absolute 0.01 K/mm3 (0.00-0.031); Immature Granulocyte Percent A 0.3 % (0-0.5); Lymphocytes Absolute Auto 1.22 K/mm3 (0.9-3.2); Lymphocytes Percent Auto 31.4 % (18.3-44.2); Mean Corpuscular HGB Conc 31.4 g/dl (32-36); Mean Corpuscular Hemoglobin 28.8 pg (26-34); Mean Corpuscular Volume 91.7 fl (80-100); Mean Platelet Volume 9.9 fl (7.4-10.4); Monocytes Absolute Auto 0.5 K/mm3 (0.1-0.6); Monocytes Percent Auto 11.6 % (2.6-8.5); Neutrophils Absolute Auto 2.1 K/mm3 (1.3-6.7); Neutrophils Percent Auto 53.9 % (45.5-73.1); Platelet Count Result 245 k/mm3 (150-375); Red Cell Distribution Width 13.4 % (11.5-14.5); White Blood Count 3.9 K/mm3 (4.5-10.0)
[2023-12-15 13:25] LABS: Alanine Aminotransferase 16 U/L (6-35); Albumin Level 4.2 g/dL (3.5-5.1); Alkaline Phosphatase 55 U/L (38-126); Anion Gap 4 mmol/L (4-12); Aspartate Amino Transferase 34 U/L (14-36); Bilirubin,Total 0.5 mg/dL (0.2-1.3); Blood Urea Nitrogen 15 mg/dL (7-17); Calcium 9.2 mg/dL (8.4-10.2); Carbon Dioxide 30 mmol/L (22-30); Chloride 106 mmol/L (98-107); Cholesterol 181 mg/dL (0-200); Estimated Glomerular Filt Rate > 60; Glucose 97 mg/dL (65-110); HDL Direct 85 mg/dL; Potassium 4.2 mmol/L (3.4-5.0); Sodium 140 mmol/L (137-145); Triglycerides 45 mg/dL (<150)
[2023-12-15 13:35] LABS: LDL Cholesterol Direct 74 mg/dL
[2023-12-15 13:59] LABS: Vitamin D 25 Hydroxy 65.3 ng/mL
== END 2023-12-15 12:10 | disposition home or self-care (01) ==
PROVIDERS: PCP Internal Medicine; Visit Provider Clinical Nurse Specialist
DX: E78.00 Pure hypercholesterolemia, unspecified (principal); C21.0 Malignant neoplasm of anus, unspecified; D61.818 Other pancytopenia; I10 Essential (primary) hypertension; K58.0 Irritable bowel syndrome with diarrhea
CPT/HCPCS: 36415; 80053; 80061; 82306; 85025

== ENCOUNTER 2024-04-28 15:08 | Outpatient (CLI) | payer MEDICARE, SELFPAY ==
--- NOTE | ~2024-04-28 | MM_ITS ---
EXAMINATION: MM screening [facility] BI w alayna HISTORY: Screening mammogram TECHNIQUE: Craniocaudal and mediolateral oblique 3-D tomosynthesis images were obtained and synthetic 2-D images were generated. CAD analysis was submitted and interpreted. COMPARISON: 01/22/2023, 11/19/2021, 05/24/2020, 08/05/2018 BREAST PARENCHYMAL COMPOSITION:Not Dense. There are scattered areas of fibroglandular density. FINDINGS: No suspicious mass, calcification, or architectural distortion are identified in either clemente ast to suggest malignancy. There has been no suspicious interval change. IMPRESSION: No mammographic evidence of malignancy. Recommend routine screening mammography in one year. BI-RADS Category 1: Negative Reviewed, dictated and finalized at location .
== END 2024-04-28 15:09 | disposition home or self-care (01) ==
LOC: ANHIMG 15:10
PROVIDERS: PCP Internal Medicine; Visit Provider Obstetrics & Gynecology
DX: Z12.31 Encounter for screening mammogram for malignant neoplasm of breast (principal)
CPT/HCPCS: 77063; 77067

== ENCOUNTER 2024-05-24 13:33 | Outpatient (CLI) | payer MEDICARE, SELFPAY ==
[2024-05-24 14:02] LABS: Basophils Percent Auto 0.5 % (0.2-1.2); Eosinophils Absolute Auto 0.1 K/mm3 (0-0.3); Eosinophils Percent Auto 1.6 % (0-4.4); Hematocrit 40.2 % (37.0-47.0); Hemoglobin 12.5 g/dL (12.0-15.0); Immature Granulocyte Absolute 0.02 K/mm3 (0.00-0.031); Immature Granulocyte Percent A 0.5 % (0-0.5); Lymphocytes Absolute Auto 1.02 K/mm3 (0.9-3.2); Lymphocytes Percent Auto 23.1 % (18.3-44.2); Mean Corpuscular HGB Conc 31.1 g/dl (32-36); Mean Corpuscular Hemoglobin 28.8 pg (26-34); Mean Corpuscular Volume 92.6 fl (80-100); Mean Platelet Volume 10.2 fl (7.4-10.4); Monocytes Absolute Auto 0.4 K/mm3 (0.1-0.6); Neutrophils Absolute Auto 2.9 K/mm3 (1.3-6.7); Neutrophils Percent Auto 64.3 % (45.5-73.1); Platelet Count Result 258 k/mm3 (150-375); Red Blood Count 4.34 M/mm3 (4.2-5.4); Red Cell Distribution Width 13.2 % (11.5-14.5); Reticulocyte Hemoglobin Conten 33.1 pg (28.2-36.6); Reticulocytes Absolute 0.06 10^6/uL (0.02-0.10); White Blood Count 4.4 K/mm3 (4.5-10.0)
[2024-05-24 14:20] LABS: Anion Gap 5 mmol/L (4-12); Blood Urea Nitrogen 16 mg/dL (7-17); Calcium 9.3 mg/dL (8.4-10.2); Carbon Dioxide 32 mmol/L (22-30); Chloride 101 mmol/L (98-107); Estimated Glomerular Filt Rate > 60; Glucose 111 mg/dL (65-110); Potassium 3.9 mmol/L (3.4-5.0); Sodium 138 mmol/L (137-145)
[2024-05-24 14:47] LABS: Iron 81 ug/dL (37-170)
[2024-05-24 14:56] LABS: Percent Iron Saturation 26 % (20-50)
== END 2024-05-24 13:34 | disposition home or self-care (01) ==
PROVIDERS: PCP Internal Medicine; Visit Provider Clinical Nurse Specialist
DX: D61.818 Other pancytopenia (principal); R74.8 Abnormal levels of other serum enzymes; I10 Essential (primary) hypertension
CPT/HCPCS: 36415; 80048; 82728; 83540; 83550; 85025; 85046

== ENCOUNTER 2024-06-03 15:41 | Emergency (ER) | payer MEDICARE, SELFPAY ==
[2024-06-03 15:54] VITALS: BP 121/68; PULSE 88; RESP 18; TEMP 36.7; O2SAT 99
--- NOTE | 2024-06-03 16:23 | ED_ITS ---
HPI - Female Genitourinary General Chief complaint: Urogenital-Female Stated complaint: Side pain Frequent urination Source: patient and RN notes reviewed Mode of arrival: ambulatory Limitations: no limitations History of Present Illness HPI Narrative: 73 y/o female with hx anal cancer presented for c/o left flank pain, urinary frequency, and chills over the past few days. Flank pain is intermittent. Also says she may have had blood in urine, as she noticed pink tinge on the boubacar pad. 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 Denies nausea, vomiting, abdominal pain, constipation, fevers or chills. Related Data Home Medications Medication Instructions Recorded Confirmed ascorbate calcium (vitamin C) 500 500 mg PO DAILY 09/29/19 05/17/24 mg tablet cholecalciferol (vitamin D3) 50 50 mcg PO DAILY 12/11/22 05/17/24 mcg (2,000 unit) capsule diphenoxylate-atropine 2.5 1 tablet PO TID diarrhea 06/03/24 mg-0.025 mg tablet (Lomotil) Allergies Allergy/AdvReac Type Severity Reaction Status Date / Time aspirin Allergy Mild Headache Verified 06/03/24 16:14 penicillin G Allergy Mild headache Verified 06/03/24 16:14 Penicillins Allergy Mild headache Verified 06/03/24 16:14 Sulfa (Sulfonamide Allergy Mild headache Verified 06/03/24 16:14 Antibiotics) sulfanilamide Allergy Mild Headache Verified 06/03/24 16:14 Review of Systems Review of Systems: CONSTITUTIONAL: Denies body aches, fever, chills, or sweats. CARDIOVASCULAR: Denies chest pain, palpitations, or edema. RESPIRATORY: Denies cough or dyspnea. GASTROINTESTINAL: Denies abdominal pain, nausea, vomiting, or diarrhea. GENITOURINARY: Reports frequency, urgency, flank pain denies dysuria,hematuria SKIN: Denies rash, itching, or wounds. MUSCULOSKELETAL: Denies back pain or myalgia. [facility] Past Medical History Medical History Anal cancer Hypercholesterolemia Hyperparathyroidism Hypertension Kidney stones Vulvar adhesions Surgical History Surgical History H/O section x 2 H/O foot surgery H/O knee surgery bilateral H/O lithotripsy History of colon surgery removal of anal tumor History of dilation and curettage Family History Family History Mother Family history of osteoporosis Family history of migraine headaches Family history of arthritis Family history of hearing loss Family history of congestive heart failure Patient's mother is , Onset Age: 99 Father Malignant neoplasm of prostate Patient's father is Grandparent Family history of malignant neoplasm of breast Social History Social History Smoking status: Former smoker Second hand tobacco smoke exposure: No Alcohol intake: current Alcohol use details: occasionally Lack of Transportation: No Lack of Food: Never True Current Housing: I Have Housing Concerned About Future Housing: No Difficulty Paying Gas/Electric Bills: No Difficulty Paying for Meds: No Currently Unemployed: No Education: Bachelor's Degree Difficulty w/ Childcare or Family Care: No Gender identity (if verbalized by the patient): Female Comments At time of signature, I have reviewed and agree with nursing past medical, surgical, social and family history unless otherwise noted. Please see nursing chart for further information. There is no relevant family history pertinent to the presenting complaint Exam Narrative: GENERAL: Well-appearing ENT: Mucous membranes pink and moist. CHEST: No respiratory distress. Clear to auscultation. HEART: Regular rate and rhythm. ABDOMEN: Soft, nontender, nondistended, normal active bowel sounds. Mild left CVA tenderness SKIN: Warm, dry, no rash. NEURO: No focal deficits. Alert and oriented x3. Gait steady. PSYCH: Normal affect. Course Course Emergency Course: Patient is aware of diagnosis, understands and agrees to treatment plan. Anticipatory guidance given. Patient agrees to follow-up as directed and is aware of reasons to seek care at the emergency department. Portions of this record may have been created with voice recognition software Level of Care: Express Care Visit Vital Signs Vital signs: Vital Signs Temperature 98.1 F 06/03/24 15:54 Pulse Rate 88 06/03/24 15:54 Respiratory Rate 18 06/03/24 15:54 Blood Pressure 121/68 06/03/24 15:54 Pulse Oximetry 99 06/03/24 15:54 Oxygen Delivery Room Air 06/03/24 15:54 Temperature 98.1 F 06/03/24 15:54 Pulse Rate 88 06/03/24 15:54 Respiratory Rate 18 06/03/24 15:54 Blood Pressure 121/68 06/03/24 15:54 Pulse Oximetry 99 06/03/24 15:54 Oxygen Delivery Room Air 06/03/24 15:54 Reviewed MDM - Female Genitourinary MDM Narrative Medical decision making narrative: Pt requests levaquin stating it has worked in the past, aware we will contact her with C&S results if indicated, provided with black box warning information. Discussed physical exam findings. Advised supportive measures and signs/symptoms to go to the ER. Pt is appropriate for outpt treatment and f/u. Differential Diagnosis Differential diagnosis: Likely urinary tract infection, cystitis and other (nephrolithiasis, renal colic, pyelonephritis, musculoskeletal pain) Lab Data Labs: Lab Results 06/03/24 Range/Units 16:25 POC Urine Color Yellow POC Urine Clarity Cloudy POC Urine pH 6.0 POC Ur Specif [place] 1.020 POC Urine Protein 1+ (Negative) POC Ur Glucose (UA) Negative (Negative) POC Urine Ketones Negative (Negative) POC Urine Blood Trace (Negative) POC Urine Nitrite Negative (Negative) POC Urine Bilirubin Negative (Negative) POC Urine Urobilinogen 0.2 POC U Leukocyte Esteras Negative (Negative) Discharge Plan Discharge Clinical Impression: Urinary frequency Patient Disposition: Home, Self-Care Condition: Stable Instructions: Antibiotic Form, Kidney Infection (ED), Urinary Tract Infection in Older Adults (ED) Additional Instructions: Take the antibiotic as prescribed The urine will be sent of for a culture to identify what type of bacteria is causing your infection. If the culture shows that the antibiotic will not get rid of your infection, you will be notified and a new antibiotic will be called in for you. Increase water intake -Levofloxacin has an increased risk of tendon rupture/tendonitis especially in people over 60 years old. If you experience tendon inflammation while taking fluoroquinolones, you should stop taking them immediately to reduce the risk of rupture.? Monitor and go to the ER for : * A popping or snapping sensation in the tendon? * Bruising immediately after the injury? * Inability to move or put weight on the affected area? * Inflammation, swelling, heat, or tenderness? * Pain, soreness, or swelling in the muscles or tendons? you will need to follow up with your PCP, call to schedule an appointment. Go to the ER for any worsening symptoms or concerns Prescriptions: New levofloxacin 250 mg tablet 250 mg PO DAILY 3 Days Qty: 3 0RF No Action diphenoxylate-atropine [Lomotil] 2.5-0.025 mg tablet 1 tablet PO TID cholecalciferol (vitamin D3) 50 mcg (2,000 unit) capsule 50 mcg PO DAILY losartan 50 mg tablet 25 mg PO BID Qty: 90 1RF atorvastatin 10 mg tablet See Rx Instructions .ROUTE .COMPLEX Qty: 90 1RF Dose Instruction: TAKE 1 TABLET EVERY DAY Rx Instructions: TAKE 1 TABLET EVERY DAY valacyclovir 500 mg tablet 500 mg PO DAILY Qty: 90 1RF ascorbate calcium (vitamin C) 500 mg tablet 500 mg PO DAILY Follow-up/Referrals: Massimo Snowden DO [Primary Care Provider] - Time of Disposition: 16:37
[2024-06-03 16:30] LABS: EDUAAPPEAR Cloudy; EDUABILI Negative (Negative); EDUABLOOD Trace (Negative); EDUACOLOR1 Yellow; EDUAGLUCOSE Negative (Negative); EDUAKETONE Negative (Negative); EDUALEUKO Negative (Negative); EDUANITRATE Negative (Negative); EDUAPROTEIN 1+ (Negative); EDUAUROBILI 0.2
== END 2024-06-03 16:42 | disposition home or self-care (01) ==
PROVIDERS: Emergency Provider Nurse Practitioner Family; PCP Internal Medicine
DX: R35.0 Frequency of micturition (principal); I10 Essential (primary) hypertension; Z85.048 Personal history of other malignant neoplasm of rectum, rectosigmoid junction, and anus; Z87.891 Personal history of nicotine dependence
CPT/HCPCS: 81003; 87086; 99213; G0463

== ENCOUNTER 2024-06-07 13:28 | Outpatient (CLI) | payer MEDICARE, SELFPAY ==
--- NOTE | ~2024-06-07 | XR_ITS ---
Supine and upright views of the abdomen Clinical history: Renal stone COMPARISON: 01/07/2013 Findings: Bowel gas pattern is nonspecific. No evidence for obstruction or free air. Suspected very s mall left renal stones. Osseous structures are intact. Impression: Suspected small left renal stones. Reviewed, dictated and finalized at location . Impression: Suspected small left renal stones.
== END 2024-06-07 13:29 | disposition home or self-care (01) ==
PROVIDERS: PCP Internal Medicine; Visit Provider Clinical Nurse Specialist
DX: N20.0 Calculus of kidney (principal)
CPT/HCPCS: 74018

== ENCOUNTER 2024-06-23 15:10 | Outpatient (CLI) | payer MEDICARE, SELFPAY ==
--- NOTE | ~2024-06-23 | CT_ITS ---
Non-contrast CT scan of the Abdomen and Pelvis Clinical indication: Kidney stone Technique: 2.5 mm axial scans were obtained through the abdomen and pelvis without intravenous or or al contrast. Dose reduction technique was used on this scan by utilizing automated exposure control a nd iterative reconstruction technique. The dose-length product (DLP) was 173.71 mGy-cm. COMPARISON: 07/01/2022 Findings: Images through the lung bases reveal stable scarring at the left lung base. Minimal perica rdial fluid noted. Small bilateral nonobstructing renal stones are present, largest measuring 5 mm in the left kidney. N o ureteral stone or hydronephrosis on either side. The liver, spleen, pancreas, gallbladder, and adrenals appear normal. There is no aortic aneurysm. There is no evidence of bowel obstruction. Normal appendix. Images through the pelvis were performed. There is no evidence of ascites or lymphadenopathy. Urinary bladder unremarkable. No pelvic mass seen. Impression: Bilateral nonobstructing nephrolithiasis. Reviewed, dictated and finalized at [facility]. [employer] Impression: Bilateral nonobstructing nephrolithiasis.
== END 2024-06-23 15:11 | disposition home or self-care (01) ==
LOC: GOSHIMG 15:12
PROVIDERS: PCP Urology; Visit Provider Clinical Nurse Specialist
DX: N20.0 Calculus of kidney (principal)
CPT/HCPCS: 74176

== ENCOUNTER 2024-06-30 13:22 | Outpatient (CLI) | payer MEDICARE, SELFPAY ==
[2024-06-30 14:30] LABS: Add Urine Microscopic? YES; Appearance Urine Clear (Clear); Bacteria Urine None Seen /hpf; Bilirubin Urine Negative (Negative); Blood Urine Negative (Negative); Color Urine Yellow (Yellow); Glucose Urine UA Negative (Negative); Ketones Urine Negative (Negative); Leukocyte Esterase Ur Negative LEU/UL (Negative); Nitrate Urine Negative (Negative); Non Pathogenic Casts 0-2; Protein Urine Trace mg/dL (Negative); RBC Urine 0-2 /hpf (0-2); Squamous Epithelial Cell Urine None Seen /hpf (Few); Urobilinogen Urine 0.2 mg/dL (<2.0); WBC Urine 0-5 /hpf (0-3)
[2024-06-30 16:33] LABS: Parathyroid Intact 33.1 pg/mL (14.5-75.2)
== END 2024-06-30 13:23 | disposition home or self-care (01) ==
LOC: ANHLAB 13:23
PROVIDERS: PCP Urology; Visit Provider Clinical Nurse Specialist
DX: N20.0 Calculus of kidney (principal); E21.3 Hyperparathyroidism, unspecified; R30.0 Dysuria
CPT/HCPCS: 36415; 81001; 83519; 83970

== ENCOUNTER 2025-05-25 13:28 | Outpatient (CLI) | payer MEDICARE, SELFPAY ==
[2025-05-25 14:30] LABS: Hematocrit 37.2 % (37.0-47.0); Hemoglobin 11.7 g/dL (12.0-15.0); Immature Granulocyte Percent A 0.2 % (0-0.5); Lymphocytes Absolute Auto 1.01 K/mm3 (0.9-3.2); Mean Corpuscular HGB Conc 31.5 g/dl (32-36); Mean Corpuscular Hemoglobin 28.7 pg (26-34); Mean Corpuscular Volume 91.4 fl (80-100); Nucleated Red Blood Cells Absolute Auto 0.000 K/mm3 (0.0-0.012); Nucleated Red Blood Cells Perc 0.0 % (0.0-0.2); Platelet Count Result 238 k/mm3 (150-375); Red Blood Count 4.07 M/mm3 (4.2-5.4); White Blood Count 5.3 K/mm3 (4.5-10.0)
[2025-05-25 14:45] LABS: Alanine Aminotransferase 16 U/L (6-35); Albumin Level 3.8 g/dL (3.5-5.1); Alkaline Phosphatase 56 U/L (38-126); Anion Gap 4 mmol/L (4-12); Aspartate Amino Transferase 35 U/L (14-36); Bilirubin,Total 0.2 mg/dL (0.2-1.3); Blood Urea Nitrogen 16 mg/dL (7-17); Calcium 8.7 mg/dL (8.4-10.2); Carbon Dioxide 30 mmol/L (22-30); Chloride 104 mmol/L (98-107); Cholesterol 173 mg/dL (0-200); Estimated Glomerular Filt Rate > 60; Glucose 101 mg/dL (65-110); HDL Direct 65 mg/dL; Potassium 4.2 mmol/L (3.4-5.0); Sodium 138 mmol/L (137-145); Total Protein 6.7 g/dL (6.3-8.2); Triglycerides 77 mg/dL (<150)
[2025-05-25 15:21] LABS: Thyroid Stimulating Hormone 1.760 uIU/mL (0.465-4.680)
--- OUTSIDE RECORDS SUMMARY | 2025-05-25 15:23 | XMS_ITS | Clinical Summary ---
Author Organization [facility] Address [address] [place] [address] Care Team Providers Care Embroiderer Hand Name Role Phone Unavailable Primary Care Provider Unavailabl e Allergies Active Allergy Reactions Criticality Noted Date Comments Aspirin Tinnitus Low 11/26/2015 asprin [place] Headache,Tinnitus 06/27/2021 Penicillins Other Low 10/31/2015 Ringing in ears, Ringing in ears, Ringing in ears Sulfa (Sulfonamide Antibiotics) Other Low 10/31/2015 Ringing in ears, Ringing in ears, Ringing in ears Medications atorvastatin (LIPITOR) 10 mg tablet Take 1 tablet by mouth 1 (one) time each day. 1 Active Bifidobacterium infantis (Align) 4 mg capsule Take 4 mg by mouth. Active diphenoxylate-at ropine (LOMOTIL) 2.5-0.025 mg tablet Take 1 tablet by mouth 3 (three) times a day if needed. 1 Active ondansetron ODT (ZOFRAN-ODT) 4 mg dispersible tablet DISSOLVE 1 TABLET ON THE TONGUE EVERY 8 HOURS NEEDED FOR NAUSEA OR VOMITING 1 Active losartan (COZAAR) 50 mg tablet Take 1 tablet by mouth 1 (one) time each day. 1 Active zinc sulfate (Orazinc) 50 mg zinc (220 mg) capsule Take 220 mg by mouth 1 (one) time each day. 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 Social History Tobacco Use Types Packs/Day Years Used Date Smoking Tobacco: Never Assessed Comments Unknown Sex and Gender Information Value Date Recorded Sex Assigned at Not on file Legal Sex Female 1:19 AM PST Gender Identity Not on file Sexual Orientation Not on file Last Filed Vital Signs Vital Sign Reading Time Taken Comments Blood Pressure 127/73 06/27/2021 4:19 PM [employer] Pulse - - Temperature - - Respiratory Rate - - Oxygen Saturation - - Inhaled Oxygen Concentration - - Weight - - Height - - Body Mass Index - - Plan of Treatment Health Maintenance Due Date Last Done Comments Scaling and Root Planing 1950 Velscope Screening 01/20/2020 07/21/2019 Dental Oral Exam 09/06/2023 03/05/2023, , 11/29/2020, Additional history exists Dental X-Ray: Bitewings 09/06/2023 03/05/2023 Periodontal Maintenance 12/21/2023 09/21/19, 03/05/2023, 09/04/2022, Additional history exists Dental X-Ray: Full Mouth 11/06/2024 11/05/2021, 07/10 Dental X-Ray: Panoramic 11/25/2026 11/25/19, 11/24/2023, 12/12/2022, Additional history exists Procedures Procedure Name Priority Date/Time Associated Diagnosis Comments PANORAMIC RADIOGRAPHIC IMAGE Routine 11/24/2023 2:00 PM CDT PERIO MAINTENANCE Routine 09/21/2023 12: 30 PM [employer]OOK FORWARDER PERIODIC ORAL EVALUATION - ESTABLISHED PATIENT Routine 03/05/2023 1:15 PM CDT ADJUNCTIVE PRE-DIAGNOSTIC TEST THAT AIDS IN DETECTION OF MUCOSAL ABNORMALITIES Routine 07/21/2019 2:00 AM BLANKBOOK FORWARDER INTRAORAL - COMPREHENSIVE SERIES OF RADIOGRAPHIC IMAGES Routine 07/21/2019 2:00 AM [employer] FORWARDER from Last 3 Months or Most Recently Relevant to Health Maintenance Insurance [facility] [employer] [facility] [employer]
--- OUTSIDE RECORDS SUMMARY | 2025-05-25 15:23 | XMS_ITS | Clinical Summary ---
Author Organization [facility] Address [address] [place] [address] Care Team Providers Care Mica Laminating Machine Feeder Name Role Phone Massimo Snowden DO Primary Care Provider Source Comments [facility],non-owned Affiliates and Associated Physician Practices is amultiple site organization consisting of ambulatory clinics and hospital sitesin [place], [place], [place] and [place]. This disclosure is being madepursuant to the Care Everywhere program and may not contain all information available regarding this patient. Last updated 18.[facility] Allergies Active Allergy Reactions Criticality Noted Date Comments Aspirin Tinnitus Low 11/26/2015 asprin Penicillins Other Low 10/31/2015 Ringing in ears, Ringing in ears, Ringing in ears Sulfa Drugs Itching Low 10/31/2015 Ringing in ears, Ringing in ears, Ringing in ears Ringing in ears, Ringing in ears, Ringing in ears Medications * Be aware that medications may not be up to date on this document. Alwaysverify current medications with the patient. Ascorbic Acid (VITAMIN C PO) Take by mouth once daily Active Simethicone (GAS-X PO) Take by mouth as needed Active atorvastatin (LIPITOR) 10 MG tablet Take 1 (one) tablet by mouth once daily 10/29/2020 Active diphenoxylate-a tropine (LOMOTIL) 2.5-0.025 MG tablet Take 1 (one) tablet by mouth 3 times daily as needed 11/28/2020 Active losartan (COZAAR) 50 MG tablet Take 1 (one) tablet by mouth once daily 08/28/2020 Active VITAMIN D PO Take by mouth once daily Active zinc sulfate (ZINCATE) 220 (50 ZN) MG capsule Take 1 (one) capsule by mouth once daily Active Active Problems Problem Noted Date Diagnosed Date Abdominal pain 04/28/2016 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) Family History Medical History Relation Name Comments Cancer - Prostate Father Cancer - Breast Maternal Grandmother None Known Mother Relation Name Status Comments Father Maternal Grandmother Mother Social History Tobacco Use Types Packs/Day Years Used Date Smoking Tobacco: Never Smokeless Tobacco: Never Alcohol Use Standard Drinks/Week Comments Yes 5.8 (1 standard drink = 0.6 oz p ure alcohol) OCCASIONAL Comments No Sex and Gender Information Value Date Recorded Sex Assigned at Not on file Legal Sex Female 5:47 PM TUBE MACHINE OPERATOR Gender Identity Not on file Sexual Orientation Not on file Last Filed Vital Signs Vital Sign Reading Time Taken Comments Blood Pressure 125/82 10/06/2024 3:22 PM TUBE MACHINE OPERATOR Pulse 78 10/06/2024 3:22 PM TUBE MACHINE OPERATOR Temperature 36.8 C (98.2 F) 10/06/2024 3:22 PM TUBE MACHINE OPERATOR Respiratory Rate 17 10/06/2024 3:22 PM TUBE MACHINE OPERATOR Oxygen Saturation 100% 10/06/2024 3:22 PM TUBE MACHINE OPERATOR Inhaled Oxygen Concentration - - Weight 55.3 kg (122 lb) 10/06/2024 3:22 PM TUBE MACHINE OPERATOR Height 157.5 cm (5' 2) 10/06/2024 3:22 PM TUBE MACHINE OPERATOR Body Mass Index 22.31 10/06/2024 3:22 PM TUBE MACHINE OPERATOR Plan of Treatment Health Maintenance Due Date Last Done Comments BONE DENSITY TESTING 1950 MELINDA (AGES 45-75) - COL ON CA SCREENING 1950 CT COLONOGRAPHY - COLON CA SCREENING 1950 FIT - COLON CA SCREENING 1950 FLEX SIG - COLON CA SCREENING 1950 MAMMOGRAM 1950 HEPATITIS C SCREENING 08/29/1968 DTAP/TDAP/TD VACCINES (1 - Tdap) 1969 PNEUMOCOCCAL VACCINE 50+ (1 of 1 - PCV) 2000 ZOSTER VACCINE (1 of 2) 2000 DEPRESSION SCREENING 08/10/2024 MEDICARE AWV CALENDAR YEAR 2024 COVID-19 VACCINE (1 - 2023-2 5 season) 2025 INFLUENZA VACCINE (#1) 2025 Respiratory Syncytial Virus (RSV) Vaccine Pt: or over 60 yrs (1 - 1-dose 75+ series) 2025 COLON MONITORING 03/19/2026 03/19/2021, 03/19/2021, 03/19/2021 Colorectal Cancer Screening 03/19/2026 COLONOSCOPY - COLON CA SCREENING 03/19/2031 03/19/2021, 03/19/2021, 03/19/2021 HEPATITIS B VACCINE Aged Out No longe r eligible based on patient's age to complete this topic HIB VACCINE Aged Out No longer eligi ble based on patient's age to complete this topic HPV VACCINE Aged Out No longer eligi ble based on patient's age to complete this topic MENINGOCOCCAL (Group B) VACCINE SHARED DECISION-MAKING Aged Out No longer eligible based on patient's age to complete this topic MENINGOCOCCAL GROUPS A/C/Y/W VACCINE Aged Out No longer eligible b ased on patient's age to complete this topic Procedures Procedure Name Priority Date/Time Associated Diagnosis Comments ENDOSCOPY, COLON, DIAGNOSTIC Routine 03/19/2021 12:49 PM CDT Abdominal pain, unspecified abdominal location Hx of colonic polyps Diarrhea, unspecified type from Last 3 Months or Most Recently Relevant to Health Maintenance Results * ENDOSCOPY, COLON, DIAGNOSTIC (03/19/2021 12:49 PM CDT) Report Endoscopy POC _ Patient Name: Elis Galvan Procedure Date: 03/19/2021 12:49 PM Date of : 1950 Admit Type: Outpatient Age: 70 Gender: Female Ethnicity: Not or Race: Black or Attending MD: Tushar Doyle MD _ Procedure: Colonoscopy Indications: Personal history of malignant neoplasm of the colon, Personal history of colonic polyps, Personal history of malignant neoplasm of the anal canal Providers: Tushar Doyle MD (Doctor), Nathalie Chi RN, Inderjit Cook, Machine Operator General, Nataliya Shell RN Referring MD: Massimo Snowden (Referring MD) Medicines: Monitored Anesthesia Care Complications: No immediate complications. _ Procedure: Pre-Anesthesia Assessment: - Prior to the procedure, a History and Physical was performed, and patient medications and allergies were reviewed. The patient's tolerance of previous anesthesia was also reviewed. The risks and benefits of the procedure and the sedation options and risks were discussed with the patient. All questions were answered, and informed consent was obtained. Prior Anticoagulants: The patient has taken no previous anticoagulant or antiplatelet agents. ASA Grade Assessment: II - A patient with mild systemic disease. After reviewing the risks and benefits, the patient was deemed in satisfactory condition to undergo the procedure. After I obtained informed consent, the scope was passed under direct vision. Throughout the procedure, the patient's blood pressure, pulse, and oxygen saturations were monitored continuously. The Colonoscope was introduced through the anus and advanced to the cecum, identified by appendiceal orifice and ileocecal valve. The colonoscopy was performed without difficulty. The patient tolerated the procedure well. The quality of the bowel preparation was adequate. The ileocecal valve, appendiceal orifice, and rectum were photographed. Impression: - Diverticulosis. - One 3 mm polyp in the rectum, removed with a cold biopsy forceps. Resected and retrieved. - One 3 mm polyp in the sigmoid colon, removed with a cold biopsy forceps. Resected and retrieved. - One 2 mm polyp in the ascending colon, removed with a cold biopsy forceps. Resected and retrieved. - The ascending colon is normal. Biopsied. Findings: Diverticula were found in the colon. A 3 mm polyp was found in the rectum. The polyp was sessile. The polyp was removed with a cold biopsy forceps. Resection and retrieval were complete. Estimated blood loss: none. A 3 mm polyp was found in the sigmoid colon. The polyp was sessile. The polyp was removed with a cold biopsy forceps. Resection and retrieval were complete. Estimated blood loss: none. A 2 mm polyp was found in the ascending colon. The polyp was sessile. The polyp was removed with a cold biopsy forceps. Resection and retrieval were complete. Estimated blood loss: none. The ascending colon appeared normal. Biopsies were taken with a cold forceps for histology. Estimated blood loss: none. _ Recommendation: - Written discharge instructions were provided to the patient. - The signs and symptoms of potential delayed complications were discussed with the patient. - Patient has a contact number available for emergencies. - Return to normal activities tomorrow. - Resume previous diet. - Continue present medications. - Await pathology results. - Repeat colonoscopy in 5 years for surveillance based on pathology results. Procedure Code(s): --- Professional --- 49983, Colonoscopy, flexible; with biopsy, single or multiple --- Technical --- 99599, Colonoscopy, flexible; with biopsy, single or multiple Diagnosis Code(s): --- Professional --- K62.1, Rectal polyp K63.5, Polyp of colon Z85.038, Personal history of other malignant neoplasm of large intestine Z86.010, Personal history of colonic polyps Z85.048, Personal history of other malignant neoplasm of rectum, rectosigmoid junction, and anus K57.30, Diverticulosis of large intestine without perforation or abscess without bleeding --- Technical --- K62.1, Rectal polyp K63.5, Polyp of colon Z85.038, Personal history of other malignant neoplasm of large intestine Z86.010, Personal history of colonic polyps Z85.048, Personal history of other malignant neoplasm of rectum, rectosigmoid junction, and anus K57.30, Diverticulosis of large intestine without perforation or abscess without bleeding CPT copyright 2019 [employer]. All rights reserved. The codes documented in this report are preliminary and upon stock room manager review may be revised to meet current compliance requirements. Tushar Doyle MD 03/19/2021 1:20:36 PM This report has been signed electronically. Number of Addenda: 0 Note Initiated On: 03/19/2021 12:49 PM [facility]COPY 03/19/2021 12:4 9 PM CDT us Tushar Doyle MD GI PROCEDURE ORDERABLES Edited R esult - Final [facility] ENDOSCOPY from Last 3 Months or Most Recently Relevant to Health Maintenance Insurance [facility] MANAGED MEDICARE ADV [facility] MEDICARE ADV Advance Directives Documents on File Type Date Recorded Patient Triple Valve Tester Expl anation Advance Directives and Livin g Will 11/26/2015 12:00 AM Care Teams Mica Laminating Machine Feeder Relationship Specialty Start Date End Date Massimo Snowden DO PCP - General 01/11/21
--- OUTSIDE RECORDS SUMMARY | 2025-05-25 15:23 | XMS_ITS ---
Author Organization [facility] Address [address] 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 Past Treatment and Therapy Plans No past plan information found. Lifetime Dose Tracking * Chemical Lifetime Dose Automatic Entry Manual Entr y Dose Length Product 246.8 mGy-cm 246.8 mGy-cm 0 mGy-cm
--- OUTSIDE RECORDS SUMMARY | 2025-05-25 15:23 | XMS_ITS | Encounter Summary ---
Author Organization [facility] Address [address] [place] [address] Care Team Providers Care Collection Administrator Name Role Phone Unavailable Primary Care Provider Unavailabl e Reason for Visit * Reason Onset Date Comments Patient Communication 05/25/2025 Encounter Details Date Type Department Care Team (Late st Contact Info) Description 05/25/2025 Telephone [facility] [place] [address] [place] [address] Steffi Livingston MD [address] [place] [address] Patient Communication Social History Tobacco Use Types Packs/Day Years Used Date Smoking Tobacco: Never Alcohol Use Standard Drinks/Week Comments Yes 5 (1 standard drink = 0.6 oz pur e alcohol) glasses of wine Comments No Sex and Gender Information Value Date Recorded Sex Assigned at Not on file Legal Sex Female 10:43 AM CDT Gender Identity Not on file Sexual Orientation Not on file documented as of this encounter Miscellaneous Notes * Telephone Encounter - Shannon Hung - 05/25/2025 11:53 AM CDT Patient called to cancel appt 06/02 appt. Stated she is not having any issues and will call if anything changes. documented in this encounter Plan of Treatment Not on file documented as of this encounter Visit Diagnoses Not on filedocumented in this encounter
--- OUTSIDE RECORDS SUMMARY | 2025-05-25 15:23 | XMS_ITS | Encounter Summary ---
Author Organization [facility] Address [address] [place] [address] Care Team Providers Care Die Repairer Stamping Name Role Phone Unavailable Primary Care Provider Unavailabl e Prior Encounters Date Type Department Care Team Description 11/24/2023 Travel 11/24/2023 2:00 PM CDT Office Visit [facility] [address] [place] [address] Keily Jarrett, ALOK 09/21/2023 12:30 PM TRANSPORTATION LEAD Office Visit [facility] [address] [place] [address] Marine Parrish, [facility] 03/05/2023 1:15 PM CDT Office Visit [facility] [address] [place] [phone] Toño Bruan, [facility] 03/05/2023 1:00 PM CDT Office Visit [facility] [address] [place] [phone] Marine Parrish, [facility] 12/12/2022 10:00 AM CDT Office Visit [facility] [address] [place] [address] Ralph Louis, [facility] [address] 09/04/2022 12:00 PM TRANSPORTATION LEAD Office Visit [facility] [address] [place] [address] Marine Parrish, [facility] 11/05/2021 Travel 11/05/2021 10:00 AM CDT Office Visit [facility] [address] [place] [address] Dennis Banda, DDS 06/27/2021 4:00 PM TRANSPORTATION LEAD Office Visit [facility] [address] [address] Bennett, Abril, RDH 06/27/2021 4:00 PM TRANSPORTATION LEAD Office Visit [address] [address] RichardzariashiraLetty Cortes, DMD 08/29/2019 Converted CPS Chart Documents [address] [phone] <No scans attached> 08/29/2019 Converted 13x Documents [address] [phone] <No scans attached> Last Filed Vital Signs Vital Sign Reading Time Taken Comments Blood Pressure 127/73 06/27/2021 4:19 PM TRANSPORTATION LEAD Pulse - - Temperature - - Respiratory Rate - - Oxygen Saturation - - Inhaled Oxygen Concentration - - Weight - - Height - - Body Mass Index - - Plan of Treatment Not on file Procedures Procedure Name Priority Date/Time Associated Diagnosis Comments PANORAMIC RADIOGRAPHIC IMAGE Routine 11/24/2023 2:00 PM CDT BITEWING - SINGLE RADIOGRAPHIC IMAGE Routine 11/24/2023 2:00 PM CDT ADDITIONAL X-RAY Routine 11/24/2023 2:00 PM CDT LIMITED ORAL EVALUATION - PROBLEM FOCUSED Routine 11/24/2023 2:00 PM CDT SINGLE X-RAY Routine 11/24/2023 2:00 PM CDT PERIO MAINTENANCE Routine 09/21/2023 12: 30 PM TRANSPORTATION LEAD BITEWINGS - FOUR RADIOGRAPHIC IMAGES Routine 03/05/2023 1:15 PM CDT PERIODIC ORAL EVALUATION - ESTABLISHED PATIENT Routine 03/05/2023 1:15 PM CDT PERIO MAINTENANCE Routine 03/05/2023 1:0 0 PM CDT 31 DO RESIN-BASED COMPOSITE - TWO SURFACES, POSTERIOR Routine 12/12/2022 10:00 AM CDT PANORAMIC RADIOGRAPHIC IMAGE Routine 12/12/2022 10:00 AM CDT BITEWING - SINGLE RADIOGRAPHIC IMAGE Routine 12/12/2022 10:00 AM CDT SINGLE X-RAY Routine 12/12/2022 10:00 AM CDT ADDITIONAL X-RAY Routine 12/12/2022 10:0 0 AM CDT LIMITED ORAL EVALUATION - PROBLEM FOCUSED Routine 12/12/2022 10:00 AM CDT PERIO MAINTENANCE Routine 09/04/2022 12: 00 PM TRANSPORTATION LEAD LIMITED ORAL EVALUATION - PROBLEM FOCUSED Routine 11/05/2021 10:00 AM CDT PERIO MAINTENANCE Routine 06/27/2021 4:0 0 PM TRANSPORTATION LEAD BITEWINGS - FOUR RADIOGRAPHIC IMAGES Routine 06/27/2021 4:00 PM TRANSPORTATION LEAD PERIODIC ORAL EVALUATION - ESTABLISHED PATIENT Routine 06/27/2021 4:00 PM TRANSPORTATION LEAD PERIODIC ORAL EVALUATION - ESTABLISHED PATIENT Routine 11/29/2020 2:00 AM CDT PERIO MAINTENANCE Routine 11/29/2020 2:0 0 AM CDT ORAL HYGIENE INSTRUCTIONS Routine 2020 2:00 AM CDT PLAN VISIT FEE Routine 11/29/2020 2:00 AM CDT CANCELLED APPOINTMENT Routine 10/26/2020 2:00 AM CDT CANCELLED APPOINTMENT Routine 10/26/2020 2:00 AM CDT 20 CEMENT CROWN Routine 08/01/2020 2:00 AM TRANSPORTATION LEAD NC X-RAY Routine 08/01/2020 2:00 AM TRANSPORTATION LEAD 20 LAB FEE - NON-CROWN/BRIDGE Routine 07/19/2020 2:00 AM TRANSPORTATION LEAD 20 CROWN PORC POST Routine 07/19/2020 2: 00 AM TRANSPORTATION LEAD 20 LIMITED ORAL EVALUATION - PROBLEM FOCUSED Routine 07/19/2020 2:00 AM TRANSPORTATION LEAD ADDITIONAL X-RAY Routine 07/19/2020 2:00 AM TRANSPORTATION LEAD SINGLE X-RAY Routine 07/19/2020 2:00 AM TRANSPORTATION LEAD PERIODIC ORAL EVALUATION - ESTABLISHED PATIENT Routine 04/25/2020 2:00 AM CDT PERIO MAINTENANCE Routine 04/25/2020 2:0 0 AM CDT ORAL HYGIENE INSTRUCTIONS Routine 2019 2:00 AM CDT BITEWINGS - FOUR RADIOGRAPHIC IMAGES Routine 04/25/2020 2:00 AM CDT PLAN VISIT FEE Routine 04/25/2020 2:00 AM CDT 14 PONTIC - PFM - POST Routine 9 2:00 AM TRANSPORTATION LEAD 3 PONTIC - PFM - POST Routine 07/21/2019 2:00 AM TRANSPORTATION LEAD 15 RETAINER CROWN - PFM - POST Routine 07/21/2019 2:00 AM TRANSPORTATION LEAD 13 RETAINER CROWN - PFM - POST Routine 07/21/2019 2:00 AM TRANSPORTATION LEAD 4 RETAINER CROWN - PFM - POST Routine 07/21/2019 2:00 AM TRANSPORTATION LEAD 2 RETAINER CROWN - PFM - POST Routine 07/21/2019 2:00 AM TRANSPORTATION LEAD 5 CROWN PORC POST Routine 07/21/2019 2:0 0 AM TRANSPORTATION LEAD 30 CEREC ZIRC CROWNPOST Routine 07/21/20 2:00 AM TRANSPORTATION LEAD 30 ENDODONTIC THERAPY, MOLAR TOOTH (EXCLUDING FINAL JUDAISM) Routine 07/21/2019 2:00 AM TRANSPORTATION LEAD 12 CROWN PFG POST Routine 07/21/2019 2:0 0 AM TRANSPORTATION LEAD PERIO CONSULT Routine 07/21/2019 2:00 AM TRANSPORTATION LEAD COMPREHENSIVE ORAL EVALUATION - NEW OR ESTABLISHED PATIENT Routine 07/21/2019 2:00 AM TRANSPORTATION LEAD ADJUNCTIVE PRE-DIAGNOSTIC TEST THAT AIDS IN DETECTION OF MUCOSAL ABNORMALITIES Routine 07/21/2019 2:00 AM TRANSPORTATION LEAD PERIO MAINTENANCE Routine 07/21/2019 2:0 0 AM TRANSPORTATION LEAD ORAL HYGIENE INSTRUCTIONS Routine 2018 2:00 AM TRANSPORTATION LEAD PANORAMIC RADIOGRAPHIC IMAGE Routine 07/21/2019 2:00 AM TRANSPORTATION LEAD INTRAORAL - COMPREHENSIVE SERIES OF RADIOGRAPHIC IMAGES Routine 07/21/2019 2:00 AM TRANSPORTATION LEAD INTRAORAL PHOTO Routine 07/21/2019 2:00 AM TRANSPORTATION LEAD INTRAORAL PHOTO Routine 07/21/2019 2:00 AM TRANSPORTATION LEAD INTRAORAL PHOTO Routine 07/21/2019 2:00 AM TRANSPORTATION LEAD INTRAORAL PHOTO Routine 07/21/2019 2:00 AM TRANSPORTATION LEAD 19 NITA COMPOSITE FILLING Routine 07/21/20 2:00 AM TRANSPORTATION LEAD Visit Diagnoses Not on file Insurance [facility] [place] [address]
--- OUTSIDE RECORDS SUMMARY | 2025-05-25 15:23 | XMS_ITS | Encounter Summary ---
Author Organization [facility] Address [address] [place] [address] Care Team Providers Care Cash Management Coordinator Name Role Phone Ramone Louis MD Primary Care Provider [phone] Massimo Snowden DO Primary Care Provider [phone] Encounter Details Date Type Department Care Team (Late st Contact Info) Description 10/11/2020 Lab Requisition [facility] Care DermPath Lab [address] [place] [phone] Dale Reynoso MD [address] [place] [address] Social History Tobacco Use Types Packs/Day Years Used Date Smoking Tobacco: Never Smokeless Tobacco: Never Alcohol Use Standard Drinks/Week Comments Yes 5.8 (1 standard drink = 0.6 oz p ure alcohol) Comments Unknown Sex and Gender Information Value Date Recorded Sex Assigned at Not on file Legal Sex Female 5:47 PM ADVISOR ADVOCATE ANGEL CO FOUNDER Gender Identity Not on file Sexual Orientation Not on file documented as of this encounter Plan of Treatment Not on file documented as of this encounter Procedures Procedure Name Priority Date/Time Associated Diagnosis Comments DERMATOPATHOLOGY Routine 10/10/2020 12:0 0 AM ADVISOR [employer] F[employer]ER documented in this encounter Results * DERMATOPATHOLOGY (10/10/2020 12:00 AM ADVISOR AD[employer]OC[employer]ER) Case Report Dermatopathology Report Case: [id number] Authorizing Provider: Dale Reynoso MD Collected: 10/10/2020 12:00 AM Ordering Location: [facility] DermPath Lab Received: 10/11/2020 12:46 PM Pathologist: Matilda Alonzo MD Specimens: A) - Skin, left lower med axilla B) - Skin, left lower lat leg 3:[address] [facility] DERMATOPATHOLOGY LABORATORY Final Diagnosis Specimen A. SKIN, left lower med axilla: EPIDERMOID CYST (L72.0) Specimen B. SKIN, left lower lat leg: DILATED PORE OF JOSE (L70.8) 3:[address] [facility] DERMATOPATHOLOGY LABORATORY at [address] ADVISOR [employer] Clinical History A-B: R/O cyst vs SQ neoplasm, adnexal tumor vs lipoma. 3:[address] [facility] DERMATOPATHOLOGY LABORATORY Gross Description Specimen A: Received is one formalin filled container labeled with the patient's name and designated left lower med axilla. The specimen consists of a punch biopsy measuring [id number], bisected. Jar 0. Specimen B: Received is one formalin filled container labeled with the patient's name and designated left lower lat leg. The specimen consists of a punch biopsy measuring [id number], bisected. Jar 0. 3:[address] [facility] DERMATOPATHOLOGY LABORATORY Microscopic Description Specimen A. SKIN, left lower med axilla: Within the dermis, there is a space lined by epithelium that resembles normal epidermis and the infundibular portion of the hair follicle. Specimen B. SKIN, left lower lat leg: There is a central, broad epidermal invagination lined by epithelium with a prominent rete pattern. 3:[address] [facility] DERMATOPATHOLOGY LABORATORY Disclaimer An external and internal positive and negative controls are appropriate for the histochemical, immunohistochemical and immunofluorescence stain(s) in this case (if any), except where stated explicitly. The performance characteristics of the stain(s) cited in this report were developed and its performance characteristic determined by the Dermatopathology Laboratory at [facility], directed by Dr. June Alonzo. These tests need not be, and therefore are not, approved by the [place] Food and Drug Administration. The tests are used for clinical purposes. Billing Codes Specimen Charges Stain Charges 75619 27152 1 1 1 3:04 PM ADVISOR [employer] DERMATOPATHOLOGY LABORATORY Embedded Images 3:04 PM ADVISOR [employer] DERMATOPATHOLOGY LABORATORY Pathology/Cytology TISSUE SPECIMEN FROM SKIN / Unknown 10/10/2020 10/11/2020 12:46 PM ADVISOR [employer]ER Miscellaneous samples (specimen) TISSUE SPECIMEN FROM SKIN / Unknown 10/10/2020 10/11/2020 12:46 PM ADVISOR [employer] Dale Reynoso MD LAB - PATHOLOGY/CYTOLOGY ORD ERABLES Final Result DERMATOPATHOLOGY LABORATORY [facility] - Department of Dermatology [facility] Medicine [address] [place] [address], [address] [phone] documented in this encounter Visit Diagnoses Not on filedocumented in this encounter Care Teams Cash Management Coordinator Relationship Specialty Start Date End Date Ramone Louis MD [address] [facility] [address] [place] [address] PCP - General 10/31/15 01/10/21 Massimo Snowden DO [address] [facility] [address] [place] [address] PCP - General 01/11/21 documented as of this encounter
--- OUTSIDE RECORDS SUMMARY | 2025-05-25 15:23 | XMS_ITS | Clinical Summary ---
Author Organization [facility] Address [address] [place] [address] Phone Care Team Providers Care Groundskeeping Maintenance Name Role Phone Unavailable Primary Care Provider Unavailabl e Allergies Active Allergy Reactions Criticality Noted Date Comments Aspirin Delirium Medium 11/26/2015 asprin Penicillins Other (See Comments) Low 10/31/2015 Ringing in ears, Ringing in ears, Ringing in ears Sulfa (Sulfonamide Antibiotics) Other (See Comments) Low 10/31/2015 Ringing in ears, Ringing in ears, Ringing in ears Medications losartan (COZAAR) 50 mg tablet Take 0.5 Tablets by mouth 2 times daily. Active zinc SULFATE 50 mg zinc (220 mg) capsule Take 220 mg by mouth daily. Active atorvastatin calcium (ATORVASTATIN ORAL) Take by mouth. Active ascorbic acid (VITAMIN C) 500 mg Tablet, Chewable Take 500 mg by mouth. Active cholecalciferol, vitamin D3, 5,000 unit Take 400 Units by mouth daily. Active diphenoxylate HCl/atropine (LOMOTIL ORAL) Take by mouth. Active simethicone 80 mg Tablet, Chewable Take 80 mg by mouth every 6 hours as needed. Active bismuth subsalicylate (PEPTO-BISMOL) 262 mg Tablet, Chewable Take by mouth every 6 hours as needed for Indigestion. Active Active Problems No known active problems Encounters Date Type Department Care Team Description 05/25/2025 Telephone [facility] [place] [address] [place] [address] Setffi Livingston MD Patient Communication 04/25/2025 External Device Data STL ABSTRACTION Provider, Abstract 04/25/2025 External Device Data STL ABSTRACTION Provider, Abstract 04/18/2025 External Device Data STL ABSTRACTION Provider, Abstract 03/07/2025 External Device Data STL ABSTRACTION Provider, Abstract 03/07/2025 External Device Data STL ABSTRACTION Provider, Abstract 03/07/2025 External Device Data STL ABSTRACTION Provider, Abstract 03/03/2025 2:15 PM CDT Office Visit [facility] [place] [address] [place] [address] Steffi Livingston MD Condyloma (Primary Dx) from Last 3 Months Family History Medical History Relation Name Comments Prostate Cancer Father Breast Cancer Paternal Grandmother Relation Name Status Comments Father Paternal Grandmother Social History Tobacco Use Types Packs/Day Years Used Date Smoking Tobacco: Never Tobacco Cessation:Counseling Given: Not Answered Alcohol Use Standard Drinks/Week Comments Yes 5 (1 standard drink = 0.6 oz pur e alcohol) glasses of wine Comments No Sex and Gender Information Value Date Recorded Sex Assigned at Not on file Legal Sex Female 10:43 AM CDT Gender Identity Not on file Sexual Orientation Not on file Last Filed Vital Signs Vital Sign Reading Time Taken Comments Blood Pressure 126/74 03/03/2025 2:48 PM CDT Pulse - - Temperature - - Respiratory Rate - - Oxygen Saturation - - Inhaled Oxygen Concentration - - Weight 54.8 kg (120 lb 12.8 oz) 03/03/2025 2:48 PM CDT Height 160 cm (5' 3) 03/03/2025 2:48 PM CDT Body Mass Index 21.4 03/03/2025 2:48 PM CDT Plan of Treatment Health Maintenance Due Date Last Done Comments DTAP/TDAP/TD VACCINES (1 - Tdap) 1969 BREAST CANCER SCREENING 1990 FIT-DNA Q 3 years 1995 FIT/FOBT Q 1 year 1995 Flex Sig/CT Colonography Q 5 years 1995 PNEUMOCOCCAL VACCINE 50+ YEARS (1 of 1 - PCV) 09/03/19 ZOSTER VACCINE (1 of 2) 2000 OSTEOPOROSIS SCREENING 2015 [place] Prev entative Visit/Annual Wellness Visit 08/10/2024 INFLUENZA VACCINE (#1) 2025 RSV VACCINE (60+ or ) (1 - 1-dose 75+ series) 2025 COLORECTAL SCREENING 03/19/2031 03/19/2021 Colorectal Cancer Screening 03/19/2031 Procedures Procedure Name Priority Date/Time Associated Diagnosis Comments VT DSTRJ LESION ANUS SIMPLE CHEMICAL Routine 03/03/2025 3:25 PM CDT Condyloma from Last 3 Months Results * VT DSTRJ LESION ANUS SIMPLE CHEMICAL (03/03/2025 3:25 PM CDT) Narrative [facility] - 03/03/2025 3:25 PM CDT Steffi Livingston MD 03/03/2025 3:26 PM See progress note us Steffi Livingston MD PROCEDURE/MINOR SURGICAL ORDE RABMARIA FERNANDA Final Result [facility] from Last [address] [place] [address] [facility] [id number] [facility] Address: [facility] [address] [place] [address]
== END 2025-05-25 13:29 | disposition home or self-care (01) ==
PROVIDERS: PCP Clinical Nurse Specialist; Visit Provider Clinical Nurse Specialist
DX: E21.3 Hyperparathyroidism, unspecified (principal); I10 Essential (primary) hypertension; M85.89 Other specified disorders of bone density and structure, multiple sites; E78.00 Pure hypercholesterolemia, unspecified
CPT/HCPCS: 36415; 80053; 80061; 84443; 85025

== ENCOUNTER 2025-06-22 09:53 | Outpatient (CLI) | payer MEDICARE, SELFPAY ==
--- NOTE | ~2025-06-22 | MM_ITS ---
EXAMINATION: MM screening dulce maria BI w alayna HISTORY: Screening TECHNIQUE: Craniocaudal and mediolateral oblique 3-D tomosynthesis images were obtained and synthetic 2-D images were generated. CAD analysis was submitted and interpreted. COMPARISON: Comparison to multiple prior studies sequentially, with oldest reviewed study dated 07/22/2017. BREAST PARENCHYMAL COMPOSITION: Not dense: There are scattered areas of fibroglandular density. FINDINGS: There is no evidence of suspicious mass, calcification, or architectural distortion to suggest malignancy in either breast. There has been no suspicious interval change. IMPRESSION: 1. No mammographic evidence of malignancy. 2. Recommend routine screening mammography in one year. BI-RADS Category 1: Negative Reviewed, dictated and finalized at location B. ING MACHINE OPERATOR
== END 2025-06-22 09:54 | disposition home or self-care (01) ==
LOC: MICIMG 09:54
PROVIDERS: PCP Clinical Nurse Specialist; Visit Provider Obstetrics & Gynecology
DX: Z12.31 Encounter for screening mammogram for malignant neoplasm of breast (principal)
CPT/HCPCS: 77063; 77067

== ENCOUNTER 2025-06-22 10:27 | Outpatient (CLI) | payer MEDICARE, SELFPAY ==
--- NOTE | ~2025-06-22 | XR_ITS ---
EXAMINATION: XR shoulder RT min 2V, 06/22/2025 10:45 OIL SPREADER OPERATOR HISTORY: M25.511 - Pain in right shoulder COMPARISON: No comparisons available. Findings: No acute fracture or malalignment. No significant degenerative changes. Soft tissues unremarkable. Impression: No acute fracture or malalignment. Reviewed, dictated and finalized at location P. SPREADER OPERATOR Impression: No acute fracture or malalignment.
--- NOTE | ~2025-06-22 | XR_ITS ---
XR_[id number]_CR Indication: M54.12 - Radiculopathy, cervical region RT ARM PAIN LMT ROM Comparison: None Findings: Grade 1 anterolisthesis of C4 on C5, grade 1 retrolisthesis C5 on C6. Severe loss of disc height at C5-C6. Soft tissues unremarkable Impression: No acute abnormality. Reviewed, dictated and finalized at location P. ODONTIC TECHNICIAN Impression: No acute abnormality.
--- OUTSIDE RECORDS SUMMARY | 2025-06-22 11:24 | XMS_ITS | Encounter Summary ---
Author Organization [facility] Address [address] [place] [address] Care Team Providers Care Perinatal Nurse Name Role Phone Unavailable Primary Care Provider Unavailabl e Prior Encounters Date Type Department Care Team Description 11/24/2023 Travel 11/24/2023 2:00 PM CDT Office Visit [facility] [address] [place] [address] Keily Jarrett, ALOK 09/21/2023 12:30 PM BUYER LIAISON Office Visit [facility] [address] [place] [address] Marine Parrish, [facility] 03/05/2023 1:15 PM CDT Office Visit [facility] [address] [place] [phone] Toño Braun, [facility] 03/05/2023 1:00 PM CDT Office Visit [facility] [address] [place] [phone] Marine Parrish, [facility] 12/12/2022 10:00 AM CDT Office Visit [facility] [address] [place] [address] Ralph Louis, [facility] 09/04/2022 12:00 PM BUYER LIAISON Office Visit [facility] [address] [place] [address] Marine Parrish, [facility] 11/05/2021 Travel 11/05/2021 10:00 AM CDT Office Visit [facility] [address] [place] [address] Dennis Banda, DDS 06/27/2021 4:00 PM BUYER LIAISON Office Visit [facility] [address] [address] Benentt, Abril, RDH 06/27/2021 4:00 PM BUYER LIAISON Office Visit [address] [address] RichardzariashiraLetty Cortes, DMD 08/29/2019 Converted CPS Chart Documents [address] [address] <No scans attached> 08/29/2019 Converted 13x Documents [address] [address] <No scans attached> Last Filed Vital Signs Vital Sign Reading Time Taken Comments Blood Pressure 127/73 06/27/2021 4:19 PM BUYER LIAISON Pulse - - Temperature - - Respiratory [...] PERIO MAINTENANCE Routine 09/21/2023 12: 30 PM BUYER LIAISON BITEWINGS - FOUR RADIOGRAPHIC IMAGES Routine 03/05/2023 [...] PERIO MAINTENANCE Routine 09/04/2022 12: 00 PM BUYER LIAISON LIMITED ORAL EVALUATION - PROBLEM FOCUSED Routine 11/05/2021 10:00 AM CDT PERIO MAINTENANCE Routine 06/27/2021 4:0 0 PM BUYER LIAISON BITEWINGS - FOUR RADIOGRAPHIC IMAGES Routine 06/27/2021 4:00 PM BUYER LIAISON PERIODIC ORAL EVALUATION - ESTABLISHED PATIENT Routine 06/27/2021 4:00 PM BUYER LIAISON PERIODIC ORAL EVALUATION - ESTABLISHED PATIENT Routine 11/29/2020 2:00 AM CDT PERIO MAINTENANCE Routine 11/29/2020 2:0 0 AM CDT ORAL HYGIENE INSTRUCTIONS Routine 2020 2:00 AM CDT PLAN VISIT FEE Routine 11/29/2020 2:00 AM CDT CANCELLED APPOINTMENT Routine 10/26/2020 2:00 AM CDT CANCELLED APPOINTMENT Routine 10/26/2020 2:00 AM CDT 20 CEMENT CROWN Routine 08/01/2020 2:00 AM BUYER LIAISON NC X-RAY Routine 08/01/2020 2:00 AM BUYER LIAISON 20 LAB FEE - NON-CROWN/BRIDGE Routine 07/19/2020 2:00 AM BUYER LIAISON 20 CROWN PORC POST Routine 07/19/2020 2: 00 AM BUYER LIAISON 20 LIMITED ORAL EVALUATION - PROBLEM FOCUSED Routine 07/19/2020 2:00 AM BUYER LIAISON ADDITIONAL X-RAY Routine 07/19/2020 2:00 AM BUYER LIAISON SINGLE X-RAY Routine 07/19/2020 2:00 AM BUYER LIAISON PERIODIC ORAL EVALUATION - ESTABLISHED PATIENT Routine 04/25/2020 2:00 AM CDT PERIO MAINTENANCE Routine 04/25/2020 2:0 0 AM CDT ORAL HYGIENE INSTRUCTIONS Routine 2019 2:00 AM CDT BITEWINGS - FOUR RADIOGRAPHIC IMAGES Routine 04/25/2020 2:00 AM CDT PLAN VISIT FEE Routine 04/25/2020 2:00 AM CDT 14 PONTIC - PFM - POST Routine 9 2:00 AM BUYER LIAISON 3 PONTIC - PFM - POST Routine 07/21/2019 2:00 AM BUYER LIAISON 15 RETAINER CROWN - PFM - POST Routine 07/21/2019 2:00 AM BUYER LIAISON 13 RETAINER CROWN - PFM - POST Routine 07/21/2019 2:00 AM BUYER LIAISON 4 RETAINER CROWN - PFM - POST Routine 07/21/2019 2:00 AM BUYER LIAISON 2 RETAINER CROWN - PFM - POST Routine 07/21/2019 2:00 AM BUYER LIAISON 5 CROWN PORC POST Routine 07/21/2019 2:0 0 AM BUYER LIAISON 30 CEREC ZIRC CROWNPOST Routine 07/21/20 2:00 AM BUYER LIAISON 30 ENDODONTIC THERAPY, MOLAR TOOTH (EXCLUDING FINAL WORSHIP) Routine 07/21/2019 2:00 AM BUYER LIAISON 12 CROWN PFG POST Routine 07/21/2019 2:0 0 AM BUYER LIAISON PERIO CONSULT Routine 07/21/2019 2:00 AM BUYER LIAISON COMPREHENSIVE ORAL EVALUATION - NEW OR ESTABLISHED PATIENT Routine 07/21/2019 2:00 AM BUYER LIAISON ADJUNCTIVE PRE-DIAGNOSTIC TEST THAT AIDS IN DETECTION OF MUCOSAL ABNORMALITIES Routine 07/21/2019 2:00 AM BUYER LIAISON PERIO MAINTENANCE Routine 07/21/2019 2:0 0 AM BUYER LIAISON ORAL HYGIENE INSTRUCTIONS Routine 2018 2:00 AM BUYER LIAISON PANORAMIC RADIOGRAPHIC IMAGE Routine 07/21/2019 2:00 AM BUYER LIAISON INTRAORAL - COMPREHENSIVE SERIES OF RADIOGRAPHIC IMAGES Routine 07/21/2019 2:00 AM BUYER LIAISON INTRAORAL PHOTO Routine 07/21/2019 2:00 AM BUYER LIAISON INTRAORAL PHOTO Routine 07/21/2019 2:00 AM BUYER LIAISON INTRAORAL PHOTO Routine 07/21/2019 2:00 AM BUYER LIAISON INTRAORAL PHOTO Routine 07/21/2019 2:00 AM BUYER LIAISON 19 NITA COMPOSITE FILLING Routine 07/21/20 2:00 AM BUYER LIAISON Visit Diagnoses Not on file Insurance [facility]
--- OUTSIDE RECORDS SUMMARY | 2025-06-22 11:24 | XMS_ITS ---
Author Organization [facility] Address [address] [place] [address] Care Team Providers Care Sample Patternmaker Name Role Phone Massimo Snowden DO Primary [...]
--- OUTSIDE RECORDS SUMMARY | 2025-06-22 11:24 | XMS_ITS | Clinical Summary ---
Author Organization [facility] Health Address [address] [place] [address] Care Team Providers Care Yarn Weigher Name Role Phone Unavailable Primary Care Provider Unavailabl e Allergies Active Allergy Reactions Criticality Noted Date Comments Aspirin Tinnitus Low 11/26/2015 asprin [place] Headache,Tinnitus 06/27/2021 Penicillins Other Low 10/31/2015 Ringing [...] Comments Blood Pressure 127/73 06/27/2021 4:19 PM CREW FOREMAN Pulse - - Temperature - - Respiratory [...] PERIO MAINTENANCE Routine 09/21/2023 12: 30 PM CREW FOREMAN PERIODIC ORAL EVALUATION - ESTABLISHED PATIENT Routine 03/05/2023 1:15 PM CDT ADJUNCTIVE PRE-DIAGNOSTIC TEST THAT AIDS IN DETECTION OF MUCOSAL ABNORMALITIES Routine 07/21/2019 2:00 AM CREW FOREMAN INTRAORAL - COMPREHENSIVE SERIES OF RADIOGRAPHIC IMAGES Routine 07/21/2019 2:00 AM CREW FOREMAN from Last 3 Months or Most Recently Relevant to Health Maintenance Insurance [facility]
--- OUTSIDE RECORDS SUMMARY | 2025-06-22 11:24 | XMS_ITS | Clinical Summary ---
Author Organization [facility] Address [address] [place] [address] Phone Care Team Providers Care Wool And Pelt Grader Name Role Phone Unavailable Primary Care Provider [...] Encounters Date Type Department Care Team Description 05/31/2025 External Device Data STL ABSTRACTION Provider, Abstract 05/30/2025 External Device Data STL ABSTRACTION Provider, Abstract 05/25/2025 Telephone [facility] [address] [facility] [address] [place] [phone] Steffi Livingston MD Patient Communication 04/25/2025 External Device Data STL ABSTRACTION Provider, Abstract 04/25/2025 External Device Data STL ABSTRACTION Provider, Abstract 04/18/2025 External Device Data STL ABSTRACTION Provider, Abstract from Last 3 Months Family History Medical [...] (1 of 2) 2000 OSTEOPOROSIS SCREENING 2015 INFLUENZA VACCINE (#1) 2025 RSV VACCINE (60+ or ) (1 - 1-dose 75+ series) 2025 COLORECTAL SCREENING 03/19/2031 03/19/2021 Colorectal Cancer Screening 03/19/2031 Insurance [facility] [id number]
--- OUTSIDE RECORDS SUMMARY | 2025-06-22 11:24 | XMS_ITS | Encounter Summary ---
Author Organization [facility] Address [address] [place] [address] Care Team Providers Care Civil Preparedness Coordinator Name Role Phone Ramone Louis MD Primary Care Provider [phone] Massimo Snowden DO Primary Care Provider [phone] Encounter Details Date Type Department Care Team (Late st Contact Info) Description 10/11/2020 Lab Requisition [facility] Care DermPath Lab [address] [place] [phone] Dale Reynoso MD [address] [place] [address] Social History Tobacco Use Types Packs/Day Years Used Date Smoking Tobacco: Never Smokeless Tobacco: Never Alcohol Use Standard Drinks/Week Comments Yes 5.8 (1 standard drink = 0.6 oz p ure alcohol) Comments Unknown Sex and Gender Information Value Date Recorded Sex Assigned at Not on file Legal Sex Female 5:47 PM CHIP SILO TENDER Gender Identity Not on file Sexual Orientation Not on file documented as of this encounter Plan of Treatment Not on file documented as of this encounter Procedures Procedure Name Priority Date/Time Associated Diagnosis Comments DERMATOPATHOLOGY Routine 10/10/2020 12:0 0 AM CHIP SILO TENDER documented in this encounter Results * DERMATOPATHOLOGY (10/10/2020 12:00 AM CHIP SILO TENDER) Case Report Dermatopathology Report Case: [id number] Authorizing Provider: Dale Reynoso MD Collected: 10/10/2020 12:00 AM Ordering Location: [facility] DermPath Lab Received: 10/11/2020 12:46 PM Pathologist: Matilda Alonzo MD Specimens: A) - Skin, left lower med axilla B) - Skin, left lower lat leg 3:04 PM [facility] Final Diagnosis Specimen A. SKIN, left lower med axilla: EPIDERMOID CYST (L72.0) Specimen B. SKIN, left lower lat leg: DILATED PORE OF JOSE (L70.8) 3:04 PM [facility] at [address] CHIP SILO TENDER Clinical History A-B: R/O cyst vs SQ neoplasm, adnexal tumor vs lipoma. 3:04 PM [facility] Gross Description Specimen A: Received is one formalin filled container labeled with the patient's name and designated left lower med axilla. The specimen consists of a punch biopsy measuring [id number], bisected. Jar 0. Specimen B: Received is one formalin filled container labeled with the patient's name and designated left lower lat leg. The specimen consists of a punch biopsy measuring [id number], bisected. Jar 0. 3:04 PM [facility] Microscopic Description Specimen A. SKIN, left lower med axilla: Within the dermis, there is a space lined by epithelium that resembles normal epidermis and the infundibular portion of the hair follicle. Specimen B. SKIN, left lower lat leg: There is a central, broad epidermal invagination lined by epithelium with a prominent rete pattern. 3:04 PM [facility] Disclaimer An external and internal positive and negative controls are appropriate for the histochemical, immunohistochemical and immunofluorescence stain(s) in this case (if any), except where stated explicitly. The performance characteristics of the stain(s) cited in this report were developed and its performance characteristic determined by the Dermatopathology Laboratory at [facility], directed by Dr. June Alonzo. These tests need not be, and therefore are not, approved by the [place] Food and Drug Administration. The tests are used for clinical purposes. Billing Codes Specimen Charges Stain Charges 87551 69686 1 1 1 3:04 PM CHIP SILO TENDER DERMATOPATHOLOGY LABORATORY Embedded Images 3:04 PM CHIP SILO T[facility]ER DERMATOPATHOLOGY LABORATORY Pathology/Cytology TISSUE SPECIMEN FROM SKIN / Unknown 10/10/2020 10/11/2020 12:46 PM CHIP SILO TENDER Miscellaneous samples (specimen) TISSUE SPECIMEN FROM SKIN / Unknown 10/10/2020 10/11/2020 12:46 PM CHIP SILO TENDER Dale Reynoso MD LAB - PATHOLOGY/CYTOLOGY ORD ERABLES Final Result DERMATOPATHOLOGY LABORATORY [facility] - Department of Dermatology [facility] Medicine [address] [place] [address], [address] [phone] documented in this encounter Visit Diagnoses Not on filedocumented in this encounter Care Teams Civil Preparedness Coordinator Relationship Specialty Start Date End Date Ramone Louis MD [address] [facility] [address] [place] [address] PCP - General 10/31/15 01/10/21 Massimo Snowden DO [address] [facility] [address] [place] [address] PCP - General 01/11/21 documented as of this encounter
--- OUTSIDE RECORDS SUMMARY | 2025-06-22 11:24 | XMS_ITS | Clinical Summary ---
Author Organization [facility] Address [address] [place] [address] Care Team Providers Care Supervisor Underwriting Clerks Name Role Phone Massimo Snowden DO Primary Care Provider [phone] Source Comments [facility],non-owned Affiliates and Associated Physician Practices is amultiple site organization consisting of ambulatory clinics and hospital sitesin [place] and [place]. This disclosure is being madepursuant to the Care Everywhere program and may not contain all information available regarding this patient. Last updated 18.[facility] Allergies Active Allergy Reactions Criticality Noted Date [...] on file Legal Sex Female 5:47 PM TAR WORKER Gender Identity Not on file Sexual Orientation Not on file Last Filed Vital Signs Vital Sign Reading Time Taken Comments Blood Pressure 125/82 10/06/2024 3:22 PM TAR WORKER Pulse 78 10/06/2024 3:22 PM TAR WORKER Temperature 36.8 C (98.2 F) 10/06/2024 3:22 PM TAR WORKER Respiratory Rate 17 10/06/2024 3:22 PM TAR WORKER Oxygen Saturation 100% 10/06/2024 3:22 PM TAR WORKER Inhaled Oxygen Concentration - - Weight 55.3 kg (122 lb) 10/06/2024 3:22 PM TAR WORKER Height 157.5 cm (5' 2) 10/06/2024 3:22 PM TAR WORKER Body Mass Index 22.31 10/06/2024 3:22 PM TAR WORKER Plan of Treatment Health Maintenance Due Date [...] CALENDAR YEAR 2024 COVID-19 VACCINE (1 - 2024-2 6 season) 2025 INFLUENZA VACCINE (#1) 2025 Respiratory [...] MD (Doctor), Nathalie Chi RN, Inderjit Cook, Road Crossing Guard, Nataliya Shell RN Referring MD: Massimo Snowden [...] pathology results. Procedure Code(s): --- Professional --- 46097, Colonoscopy, flexible; with biopsy, single or multiple --- Technical --- 60347, Colonoscopy, flexible; with biopsy, single or multiple [...] or abscess without bleeding CPT copyright 2019 [employer]. All rights reserved. The codes documented in this report are preliminary and upon claims adjuster crop review may be revised to meet current compliance requirements. Tushar Doyle MD 03/19/2021 1:20:36 PM This report has been signed electronically. Number of Addenda: 0 Note Initiated On: 03/19/2021 12:49 PM [facility] 03/19/2021 12:4 9 PM CDT us Tushar Doyle MD GI PROCEDURE ORDERABLES Edited R esult - Final [facility] from Last 3 Months or Most Recently Relevant to Health Maintenance Insurance [facility] MANAGED MEDICARE ADV [facility] MEDICARE ADV Advance Directives Documents on File Type Date Recorded Patient Drafter Heating And Ventilating Expl anation Advance Directives and Livin g Will 11/26/2015 12:00 AM Care Teams Supervisor Underwriting Clerks Relationship Specialty Start Date End Date Massimo Snowden DO PCP - General 01/11/21
[2025-06-22 11:44] LABS: MALB Creatinine Ratio 18.9 mg/g (0-30)
== END 2025-06-22 10:28 | disposition home or self-care (01) ==
PROVIDERS: PCP Clinical Nurse Specialist; Visit Provider Clinical Nurse Specialist
DX: I10 Essential (primary) hypertension (principal); M54.12 Radiculopathy, cervical region; M25.511 Pain in right shoulder
CPT/HCPCS: 72040; 73030; 82043

== ENCOUNTER 2025-07-05 11:29 | Outpatient (CLI) | payer MEDICARE, SELFPAY ==
--- NOTE | ~2025-07-05 | DEXA_ITS ---
Bone Density Report Name: ELIS NOEL Age: 74 Sex: Female Ethnicity: Black Date of : 1950 Indication: osteopenia; hyperparathyroidism; parental hip fracture; cancer; Referring Provider: GATO CROOKS Study: Bone densitometry was performed. Exam Date: July 05, 2025 Accession number: [id number] Bone Density: Region BMD T-score Z-score Classification AP Spine(L1-L4) 0.836 -1.9 -0.2 Osteopenia Femoral Neck (Left) 0.634 -1.9 -0.7 Osteopenia Total Hip (Left) 0.746 -1.6 -0.6 Osteopenia Femoral Neck (Right) 0.618 -2.1 -0.8 Osteopenia Total Hip (Right) 0.745 -1.6 -0.6 Osteopenia Total Hip Mean 0.745 -1.6 -0.6 Osteopenia World Health Organization criteria for BMD impression classify patients as: Normal (T-score at or above -1.0), Osteopenia (T-score between -1.0 and -2.5), or Osteoporosis (T-score at or below -2.5). 10-year Fracture Risk(1): Major Osteoporotic Fracture 22% Hip Fracture 13% Reported Risk Factors: [place] (), Neck BMD=0.618, BMI=21.6, parental fracture (1) FRAX(R) Version 3.08. Fracture probability calculated for an untreated patient. Fracture probability may be lower if the patient has received treatment. Previous Exams: -- Region Exam Age BMD T-score BMD Change BMD Change Date g/cm2 vs Baseline vs Previous -- AP Spine (L1-L4) 07/05/2025 74 0.836 -1.9 0.0% 0.0% 01/22/2023 72 0.836 -1.9 Total Hip(Left) 07/05/2025 74 0.746 -1.6 -3.2% -3.2% 01/22/2023 72 0.770 -1.4 Total Hip(Right) 07/05/2025 74 0.745 -1.6 1.3% 1.3% 01/22/2023 72 0.735 -1.7 -- *Denotes significance at 95% confidence level, LSC for AP Spine = 0.022 g/cm2, LSC for Total Hip = 0.027 g/cm2 Clinical Information Provided by Patient: Parent has had a hip fracture Has used the following medications: Vitamin D, Calcium Has the following medical conditions: Cancer, Hyperparathyroidism, anal cancer Patient maximum height was 63 Menopause Age: 50 No regular weight bearing exercise Onset of menses at age 12 Number of children 3 Impression: The patient has low bone mass, based on the Right Femoral Neck T-score. The patient has an estimated ten-year risk of hip fracture of 13% and an estimated ten-year risk of major fracture of 22%, based on the WHO FRAX algorithm. The patient has risk factors, including: parental hip fracture. No significant bone loss was observed. Discussion: BONE DENSITY IS LOW AT ONE OR MORE SKELETAL SITES. THE PATIENT'S BMD AND CLINICAL RISK FACTORS CONTRIBUTE TO THIS PATIENT'S HIGH RISK OF FRACTURE. This patient's lowest T-score is low at one or more skeletal sites. It meets the World Health Organization's (WHO) criteria for ?low bone mass? (T-score between -1.0 and -2.5). The patient's 10-year risk of hip fracture and 10 year risk of a major osteoporotic fracture as calculated by FRAX exceeds the threshold where pharmacological therapy is recommended by the National Osteoporosis Foundation (NOF). However, all treatment decisions require clinical judgment and consideration of individual patient factors, including patient preferences, comorbidities, previous drug use, risk factors not captured in the FRAX model (e.g., frailty, falls, vitamin D deficiency, increased bone turnover, interval significant decline in bone density) and possible under or overestimation of fracture risk by FRAX. The patient should follow a healthful lifestyle (good nutrition with adequate calcium and vitamin D, and appropriate weight-bearing exercise). Follow-Up: Consider a repeat BMD and Vertebral Fracture Assessment (VFA) exam in 2 years or sooner if medically necessary, to reassess this patient's status. Reported by: SAUD on 07/05/2025 11:51:00 AM. Reviewed, dictated and finalized at location A.
== END 2025-07-05 11:30 | disposition home or self-care (01) ==
LOC: MICIMG 11:29
PROVIDERS: PCP Clinical Nurse Specialist; Visit Provider Obstetrics & Gynecology
DX: M85.88 Other specified disorders of bone density and structure, other site (principal); M85.852 Other specified disorders of bone density and structure, left thigh; M85.851 Other specified disorders of bone density and structure, right thigh
CPT/HCPCS: 77080